=== PATIENT | male | born 1975 | race Two or more races ===

== ENCOUNTER 2019-11-09 15:19 | Inpatient (IN) | payer MEDICAID, OTHER ==
[~2019-11-09] VITALS: Ht 175.3 cm; Wt 97.3 kg
[2019-11-09] MEDS ORDERED: THIAMINE 100mg/ml INJ (200mg/2ml VIAL) IV ONE (16:00)
[2019-11-09 16:26] LABS: Albumin 2.6 g/dL (3.4-5.0); BUN/Creatinine Ratio 13.3; Calcium 7.8 mg/dL (8.5-10.1); Hematocrit 36.8 % (41.0-53.0); Hemoglobin 12.6 g/dL (13.5-17.5); Magnesium 1.7 mg/dL (1.6-2.6); Mean Corpuscular Hemoglobin 31.8 pg (28.0-32.0); Mean Corpuscular Hgb Conc. 34.1 g/dL (32.0-36.0); Mean Corpuscular Volume 93.3 fL (80.0-100.0); Platelet Count (auto) 84 10^3/uL (140-450); Red Blood Cells 3.95 10^6/uL (4.5-5.90); Red Cell Distribution Width 16.4 % (11.8-14.3); White Blood Cell 13.2 10^3/uL (4.4-10.8)
[2019-11-09 16:31] LABS: Total Protein 6.9 g/dL (6.4-8.2)
[2019-11-09 16:36] LABS: Potassium 2.5 mmol/L (3.5-5.1)
[2019-11-09] MEDS ORDERED: POTASSIUM CHL 20MEQ/100ML 100 ML IV ONE (16:45)
[2019-11-09 17:14] LABS: Basophils % (manual) 0 (0.0-2.0); Blast Cells 0; Eosinophils % (manual) 0 (0-7); INR 1.58 (0.9-1.15); Metamyelocytes % 0; Myelocytes % 0; Partial Thromboplastin Time 29.6 sec (23.64-32.05); Promyelocytes % 0; Reactive Lymphocytes 0
[2019-11-09] MEDS ORDERED: FOLIC ACID 1 MG, MULTIPLE VITAMIN 10 ML, MAGNESIUM SULF SDV 50% 8 MEQ, THIAMINE INJ 100... INJ SCH ×5 (17:15)
[2019-11-09 17:16] LABS: Band Neutrophils % (manual) 4; Lymphocytes % (manual) 6 (10.0-50.0); Monocytes % (manual) 4 (0-12)
[2019-11-09] MEDS ORDERED: POTASSIUM CHL 20 Meq TABLET PO ONE (18:00)
[2019-11-09] MEDS ORDERED: traMADol HCL 50 MG TAB PO PRN (18:00)
[2019-11-09] MEDS ORDERED: PROMETHAZINE HCL 25 MG/ML 1ML IV PRN (18:00)
[2019-11-09] MEDS ORDERED: MORPHINE SULF INJ 2 MG/ML SYRINGE 1ML IV PRN (18:00)
[2019-11-09] MEDS ORDERED: LACTULOSE 20Gm/30ML SOLN PO PRN (18:00)
[2019-11-09] MEDS ORDERED: ACETAMINOPHEN 500 MG TAB PO PRN (18:00)
[2019-11-09] MEDS ORDERED: NITROGLYCERIN 0.4 MG SL TAB SL PRN (18:00)
[2019-11-09] MEDS ORDERED: ALBUTEROL SULF 2.5 MG/0.5ML(0.5%) NEB SOLN NEB PRN (18:00)
[2019-11-09] MEDS: POTASSIUM CHL 20MEQ/100ML 100 ML IV SCH ×2 (18:00→22:53)
[2019-11-09] MEDS ORDERED: DEXTROSE (50%) 50ML SYRG IV PRN ×2 (18:00→20:45)
[2019-11-09] MEDS ORDERED: TEMAZEPAM 15 MG CAP PO PRN (18:00)
[2019-11-09] MEDS ORDERED: AZITHROMYCIN 500MG/ 250ML 250 ML IV ONE (18:30)
[2019-11-09] MEDS ORDERED: cefTRIAXone 1GM/50ML D5W 50 ML IV ONE (18:30)
[2019-11-09 18:41] VITALS: BP 147/77
[2019-11-09] MEDS: SOD CHL 0.9%/ KCL 40MEQ 1,000 ML IV SCH (18:43)
[2019-11-09] MEDS ORDERED: PHYTONADIONE(VitK) ORAL Susp 10mg/10ml(1mg/ml) PO ONE (18:45)
[2019-11-09 19:26] LABS: Urine Bacteria NONE SEEN /hpf (None Seen); Urine Blood Negative /uL (Negative); Urine Specific Gravity 1.015 (1.001-1.035); Urine WBC 1 /hpf (0 - 3)
[2019-11-09 19:30] LABS: Alcohol, Urine < 3.0 mg/dL (0-10); Amphetamine Screen, Urine NEGATIVE (NEGATIVE); Barbiturate Scree,Urine NEGATIVE (NEGATIVE); Benzodiazephine Screen, Urine NEGATIVE (NEGATIVE); Cannabinoid Screen, Urine NEGATIVE (NEGATIVE); Cocaine Screen, Urine NEGATIVE (NEGATIVE); Opiate Scree,Urine NEGATIVE (NEGATIVE); Phencyclidine Screen, Urine NEGATIVE (NEGATIVE)
[2019-11-09 19:45] LABS: Lactic Acid w/Reflex 3.3 mmol/L (0.4-2.0)
[2019-11-09 19:50] LABS: Free T4 (Free Thyroxine) 1.2 ng/dL (0.89-1.76)
[2019-11-09 19:51] LABS: Free T3 1.47 pg/mL (2.3-4.2)
--- NOTE | 2019-11-09 19:52 | NUR ---
admit from ED pt arrive via gurney awake, alert and oriented x4. pt on room air no distress noted or expressed. pt oriented to room, restroom, use of call light and this nurse. pt denies any pain. pt updated on plan of care. pt bed locked, low and 2x rails up. call light in reach. pt encouraged to call as needed. this nurse to check in with pt q1hr and prn.
--- NOTE | 2019-11-09 19:53 | NUR ---
instructional media services technician at bedside.
--- NOTE | 2019-11-09 20:00 | NUR ---
previous nurse had hung eliezer, but failed to document administration. this nurse called pharm to confirm that only one of three prescribed 20meq bags had been dispensed.
[2019-11-09 20:43] VITALS: BP 117/65
[2019-11-09 21:53] LABS: INR 1.56 (0.9-1.15)
[2019-11-09] MEDS ORDERED: ACCU-CHEK COMFORT CURVE STRIP VI SCH (22:00)
[2019-11-10] MEDS ORDERED: POTASSIUM CHL 20MEQ/100ML 100 ML IV ONE (03:57)
--- NOTE | 2019-11-10 03:59 | NUR ---
the third of three ordered 20meq K-rider is being administered. the initial 1800 dose had been started by ER nurse, however, had not been documented. hence this nurse "non admin" the 1800 timed dose under the comment "already given". as it stands, the MAR appears to have administered "2 of 3" bags. however, the last prescribed dose is infusing at this time.
[2019-11-10] MEDS: SOD CHL 0.9%/ KCL 40MEQ 1,000 ML IV SCH (04:00)
[2019-11-10] MEDS: InsuLIN REG 1unit/0.01ml Soln (100units/ml) SC SCH ×4 (04:00→18:39)
[2019-11-10] MEDS: POTASSIUM CHL 20MEQ/100ML 100 ML IV SCH (04:03)
[2019-11-10] MEDS: ACCU-CHEK COMFORT CURVE STRIP VI SCH ×4 (04:03→18:32)
[2019-11-10 06:03] VITALS: BP 132/65
--- NOTE | 2019-11-10 08:28 | NUR ---
Respiratory note: HR 88, RR 16, SPO2 92% ON RA.
[2019-11-10] MEDS: cefTRIAXone 1GM/50ML D5W 50 ML IV SCH (08:47)
[2019-11-10 09:00] VITALS: BP 122/65
--- NOTE | 2019-11-10 09:00 | NUR ---
IV INSERTION/ OXYGEN PLACEMENT IV access obtained, via clean sterile technique by inserting 20 gauge catheter at right AC after 1 attempt. IV secured properly. No trauma to site. Patient tolerated well. Additionally, placed patient on 2 liters nasal canula as oxygen saturation is 89% on room air upon no exertion. Patients oxygen up to 96% after initiation of oxygen. Will continue to monitor respiratory status
[2019-11-10] MEDS ORDERED: AZITHROMYCIN 500MG/ 250ML 250 ML IV SCH (10:00)
[2019-11-10] MEDS ORDERED: ENOXAPARIN SOD 40 MG/0.4 ML SYRINGE SC SCH (10:00)
--- NOTE | 2019-11-10 11:40 | NUR ---
Received call from Kajal in microbiology to notify patient is positive for covid 19. Will call and notify Dr. Emmanuel
[2019-11-10] MEDS ORDERED: FOLIC ACID 1 MG, MULTIPLE VITAMIN 10 ML, MAGNESIUM SULF SDV 50% 8 MEQ, THIAMINE INJ 100... INJ SCH ×5 (12:00)
[2019-11-10] MEDS ORDERED: ACETAMINOPHEN 500 MG TAB PO PRN ×2 (12:30→12:45)
[2019-11-10] MEDS ORDERED: DEXTROSE (50%) 50ML SYRG IV PRN (12:30)
[2019-11-10] MEDS ORDERED: FUROSEMIDE 40 MG/4 ML VIAL IV ONE (12:30)
[2019-11-10] MEDS: ALBUTEROL SULF HFA 90MCG INH 200DOSE IN SCH ×2 (14:30→21:56)
--- NOTE | 2019-11-10 14:30 | NUR ---
Respiratory note: HR 99, SPO2 94% ON 2 L NC, RR 18, BS CLEAR AND DIMINISHED. MDI GIVEN BY RT. TOLERATED WELL. RN AT BEDSIDE.
[2019-11-10 16:23] LABS: Hematocrit 38.2 % (41.0-53.0); Mean Corpuscular Hemoglobin 32.1 pg (28.0-32.0); Mean Corpuscular Hgb Conc. 34.1 g/dL (32.0-36.0); Mean Corpuscular Volume 94.3 fL (80.0-100.0); Platelet Count (auto) 96 10^3/uL (140-450); Red Blood Cells 4.05 10^6/uL (4.5-5.90); Red Cell Distribution Width 16.8 % (11.8-14.3); White Blood Cell 11.3 10^3/uL (4.4-10.8)
[2019-11-10 16:28] LABS: Basophils % (manual) 0 (0.0-2.0); Blast Cells 0; Myelocytes % 0; Promyelocytes % 0; Reactive Lymphocytes 0
[2019-11-10 16:44] LABS: Band Neutrophils % (manual) 3; Eosinophils % (manual) 1 (0-7); Lymphocytes % (manual) 9 (10.0-50.0); Metamyelocytes % 1; Monocytes % (manual) 11 (0-12)
[2019-11-10 16:46] LABS: Albumin 2.6 g/dL (3.4-5.0); Calcium 7.8 mg/dL (8.5-10.1)
[2019-11-10 16:50] LABS: Lactic Acid w/Reflex 3.9 mmol/L (0.4-2.0)
[2019-11-10 16:54] VITALS: BP 136/75
[2019-11-10 16:55] LABS: BUN/Creatinine Ratio 14.4; Bilirubin, Total 7.7 mg/dL (0.2-1.0); CRP High Sensitivity 3.69 mg/dL (< 0.3); Total Protein 7.3 g/dL (6.4-8.2)
[2019-11-10 16:57] LABS: Potassium 2.6 mmol/L (3.5-5.1)
--- NOTE | 2019-11-10 17:01 | NUR ---
RECEIVED CRITICAL LAB OF POTASSIUM 2.6. WILL CALL DR. CABALLERO TO NOTIFY AND GET ORDERS.
--- NOTE | 2019-11-10 17:01 | NUR ---
PAGED FOR CRITICAL POTASSIUM. AWAITING RETURN CALL.
--- NOTE | 2019-11-10 17:18 | NUR ---
RECEIVED CALL BACK FROM HOSPITALIST JENNIFER CANDELARIO REGARDING PATIENTS POTASSIUM. RECEIVED ORDERS, WILL DOCUMENT AND CARRY OUT
[2019-11-10] MEDS ORDERED: POTASSIUM EFFERVESENT TAB 25 MEQ PO ONE (17:30)
[2019-11-10] MEDS ORDERED: POTASSIUM CHLORIDE 20 MEQ, LIDOCAINE 1% (LOCAL ANESTH.) 2 ML in SODIUM CHL 0.9% 100 ML IV ONE (17:30)
--- NOTE | 2019-11-10 19:20 | NUR ---
OPENING SHIFT NOTE: ASSUMED CARE OF PATIENT. PATIENT IS AWAKE. ALERT AND ORIENTED X 4. RESPIRATIONS ARE EVEN AND UNLABORED, WITH SOME SOB ON EXERTION, CURRENT O2 SATURATION IS 95% ON 2L NC. PATIENT CONNECTED TO CONTINUOUS TELEMETRY BOX #2, HR IS 101 BPM. ISOLATION PRECAUTIONS IN PLACE USING PROVIDED PPE. BED IS IN LOWEST LOCKED POSITION, TWO SIDE RAILS RAISED AND CALL RIVERA WITHIN REACH. INSTRUCTED ON POC, ENCOURAGED TO CALL FOR ASSISTANCE AND ALL QUESTIONS AND CONCERNS ANSWERED AT THIS TIME, PATIENT VERBALIZED UNDERSTANDING. WILL CONTINUE TO MONITOR Q1 HR AND PRN.
[2019-11-10 20:00] VITALS: BP 125/70
[2019-11-10] MEDS: DOXYCYCLINE 100 MG TAB/CAP PO SCH (22:02)
[2019-11-10 22:17] LABS: BUN/Creatinine Ratio 17.6; Calcium 7.3 mg/dL (8.5-10.1)
[2019-11-11] MEDS: ACCU-CHEK COMFORT CURVE STRIP VI SCH ×4 (00:02→17:56)
[2019-11-11 04:00] VITALS: BP 116/63
[2019-11-11] MEDS: InsuLIN REG 1unit/0.01ml Soln (100units/ml) SC SCH ×4 (05:37→17:56)
[2019-11-11] MEDS: ALBUTEROL SULF HFA 90MCG INH 200DOSE IN SCH ×3 (06:21→21:29)
--- NOTE | 2019-11-11 06:21 | NUR ---
Respiratory note: MDI GIVEN BY RT. HR 82, RR 14, SPO2 95% ON 1 L NC, BS CLEAR AND DIMINISHED. NO SIGNS OR SYMPTOMS OF RESPIRATORY DISTRESS NOTED. RN INFORMED MDI WAS GIVEN.
[2019-11-11] MEDS ORDERED: POTASSIUM CHL 20 Meq TABLET PO ONE (08:00)
[2019-11-11] MEDS: cefTRIAXone 1GM/50ML D5W 50 ML IV SCH (09:43)
[2019-11-11] MEDS: DOXYCYCLINE 100 MG TAB/CAP PO SCH ×2 (10:00→21:34)
[2019-11-11] MEDS: CHOLECALCIFEROL (VITD3) 1,000IU=25mCg TAB PO SCH (10:00)
[2019-11-11] MEDS: ZINC SULFATE 220mg CAP or TAB PO SCH (10:00)
[2019-11-11] MEDS: ENOXAPARIN SOD 40 MG/0.4 ML SYRINGE SC SCH (10:00)
[2019-11-11] MEDS: ASCORBIC ACID 1,000 MG TAB PO SCH (10:00)
[2019-11-11] MEDS: MULTIPLE VITAMINS W/ MINERALS TAB PO SCH (10:00)
[2019-11-11] MEDS: FUROSEMIDE 40 MG/4 ML VIAL IV SCH (10:00)
--- NOTE | 2019-11-11 13:40 | NUR ---
Respiratory note MDI GIVEN BY RT. PT PLACED BACK ON 1 L NC. SPO2 92%. NO SIGNS OR SYMPTOMS OF RESPIRATORY DISTRESS NOTED AT THIS TIME. RN INFORMED MDI WAS GIVEN.
[2019-11-11 16:07] VITALS: BP 119/65
[2019-11-11 19:00] VITALS: BP 107/61
--- NOTE | 2019-11-11 19:10 | NUR ---
OPENING SHIFT NOTE: ASSUMED CARE OF PATIENT. PATIENT IS AWAKE, ALERT AND ORIENTED X 4, NO S/S OF SOB OR DISTRESS AND PT DENIES ANY PAIN. RESPIRATIONS ARE EVEN AND UNLABORED AND O2 SATURATION IS 94% ON 2L NC. ISOLATION PRECAUTIONS IN PLACE WITH PROVIDED PPE AND SAFETY PRECAUTIONS IN PLACE WITH BED LOCKED AND IN LOWEST POSITION, TWO SIDE RAILS UP, AND CALL RIVERA WITHIN REACH. INSTRUCTED ON POC AND ENCOURAGED PT TO CALL FOR ASSISTANCE, ALL QUESTIONS AND CONCERNS ADDRESSED AT THIS TIME, PATIENT VERBALIZES UNDERSTANDING. WILL CONTINUE TO MONITOR Q1 HR AND PRN.
[2019-11-11 20:00] VITALS: BP 123/66
[2019-11-12] VITALS: BP 99/48
[2019-11-12] MEDS: ACCU-CHEK COMFORT CURVE STRIP VI SCH ×2 (00:17→05:48)
[2019-11-12] MEDS: InsuLIN REG 1unit/0.01ml Soln (100units/ml) SC SCH ×2 (05:48)
[2019-11-12] MEDS: ALBUTEROL SULF HFA 90MCG INH 200DOSE IN SCH ×3 (05:48→21:56)
[2019-11-12 05:58] LABS: Hematocrit 31.8 % (41.0-53.0); Hemoglobin 11.1 g/dL (13.5-17.5); Mean Corpuscular Hemoglobin 33.1 pg (28.0-32.0); Mean Corpuscular Volume 94.4 fL (80.0-100.0); Platelet Count (auto) 98 10^3/uL (140-450); Red Blood Cells 3.37 10^6/uL (4.5-5.90); Red Cell Distribution Width 16.6 % (11.8-14.3); White Blood Cell 8.6 10^3/uL (4.4-10.8)
[2019-11-12 06:18] LABS: Basophils % (manual) 0 (0.0-2.0); Blast Cells 0; Eosinophils % (manual) 0 (0-7); Myelocytes % 0; Promyelocytes % 0; Reactive Lymphocytes 0
[2019-11-12 06:21] LABS: Albumin 2.2 g/dL (3.4-5.0); Calcium 7.3 mg/dL (8.5-10.1)
[2019-11-12 06:26] LABS: BUN/Creatinine Ratio 17.8; Bilirubin, Total 6.2 mg/dL (0.2-1.0); Total Protein 6.1 g/dL (6.4-8.2)
[2019-11-12 06:39] LABS: Potassium 2.8 mmol/L (3.5-5.1)
--- NOTE | 2019-11-12 06:40 | NUR ---
CRITICAL LAB: Received call from Andres in lab regarding potassium 2.8, Hospitalist paged. Awaiting call back.
--- NOTE | 2019-11-12 06:44 | NUR ---
HOSPITALIST JINRIKSHA DRIVER LUCIO RODRIGUEZ CALLED BACK, INFORMED OF POTASSIUM 2.8, NEW ORDERS RECEIVED. ORDER NOTED.
[2019-11-12] MEDS ORDERED: POTASSIUM CHL 20 Meq TABLET PO ONE ×2 (06:45→11:30)
[2019-11-12 07:25] LABS: Band Neutrophils % (manual) 5; Lymphocytes % (manual) 18 (10.0-50.0); Metamyelocytes % 2; Monocytes % (manual) 10 (0-12)
--- NOTE | 2019-11-12 07:30 | NUR ---
Opening Shift Note Assumed care of patient, awake and alert and oriented x4. No S/S of distress/SOB or pain, but with some sob on exertion on room air oxygen saturation 93%, will continue to monitor oxygen needs and adjust supplemental O2 as necessary to keep O2 saturations above 92%. Isolation precautions in place using provided PPE. Bed in low and locked position, rails up x2 no-slip socks on and call light within reach. Instructed on POC and to call for assist PRN, all questions answered at this time and patient verbalized understanding, will continue to monitor for changes Q1hr and PRN.
[2019-11-12 08:00] VITALS: BP 120/65
[2019-11-12] MEDS: cefTRIAXone 1GM/50ML D5W 50 ML IV SCH (09:39)
[2019-11-12] MEDS: ASCORBIC ACID 1,000 MG TAB PO SCH (09:40)
[2019-11-12] MEDS: DOXYCYCLINE 100 MG TAB/CAP PO SCH ×2 (09:40→21:46)
[2019-11-12] MEDS: MULTIPLE VITAMINS W/ MINERALS TAB PO SCH (09:40)
[2019-11-12] MEDS: ZINC SULFATE 220mg CAP or TAB PO SCH (09:40)
[2019-11-12] MEDS: CHOLECALCIFEROL (VITD3) 1,000IU=25mCg TAB PO SCH (09:40)
[2019-11-12] MEDS: FUROSEMIDE 40 MG/4 ML VIAL IV SCH (09:41)
[2019-11-12] MEDS: ENOXAPARIN SOD 40 MG/0.4 ML SYRINGE SC SCH (09:41)
--- NOTE | 2019-11-12 11:30 | NUR ---
DR MOROCHO AT BEDSIDE NEW ORDERS TO BE ADDED
[2019-11-12 12:00] VITALS: BP 117/67
[2019-11-12 15:08] VITALS: BP 102/64
[2019-11-12 16:00] VITALS: BP 104/54
--- NOTE | 2019-11-12 19:55 | NUR ---
Opening Shift Note Assumed care of patient, awake and alert oriented x4. No S/S of distress/SOB or pain noted. Instructed on POC and to call for assist PRN. Bed is in lowest locked position with bed rails up x2 and call light is within reach of the patient.
[2019-11-12 20:00] VITALS: BP 113/73
--- NOTE | 2019-11-12 21:56 | NUR ---
Respiratory note: PT'S SCHEDULED MED NEB TREATMENT WAS GIVEN BY CORINNA Saldana AT 2156. HR 97 RR 16 SP02 93% ON 1L NASAL CANNULA.
--- NOTE | 2019-11-12 22:45 | NUR ---
Covid: Covid swab done and taken to Lab. Addendum: 11/12/19 at 2304 by Ladan Cano RN RN Wrong patient
[2019-11-13] VITALS: BP 104/56
[2019-11-13 04:00] VITALS: BP 115/67
[2019-11-13 04:46] LABS: Hematocrit 34.7 % (41.0-53.0); Hemoglobin 11.7 g/dL (13.5-17.5); Mean Corpuscular Hemoglobin 32.3 pg (28.0-32.0); Mean Corpuscular Hgb Conc. 33.8 g/dL (32.0-36.0); Mean Corpuscular Volume 95.6 fL (80.0-100.0); Platelet Count (auto) 113 10^3/uL (140-450); Red Blood Cells 3.63 10^6/uL (4.5-5.90); Red Cell Distribution Width 16.3 % (11.8-14.3); White Blood Cell 11.4 10^3/uL (4.4-10.8)
[2019-11-13 04:52] LABS: Albumin 2.4 g/dL (3.4-5.0); BUN/Creatinine Ratio 16.7; Calcium 7.7 mg/dL (8.5-10.1); Potassium 3.2 mmol/L (3.5-5.1)
[2019-11-13 04:55] LABS: Bilirubin, Total 6.7 mg/dL (0.2-1.0); Total Protein 6.7 g/dL (6.4-8.2)
[2019-11-13 04:56] LABS: Basophils % (manual) 0 (0.0-2.0); Blast Cells 0; Promyelocytes % 0; Reactive Lymphocytes 0
[2019-11-13 06:41] LABS: Band Neutrophils % (manual) 3; Eosinophils % (manual) 1 (0-7); Lymphocytes % (manual) 17 (10.0-50.0); Metamyelocytes % 2; Monocytes % (manual) 6 (0-12); Myelocytes % 1
[2019-11-13] MEDS: ALBUTEROL SULF HFA 90MCG INH 200DOSE IN SCH (06:51)
--- NOTE | 2019-11-13 07:30 | NUR ---
Opening Shift Note Assumed care of patient, awake and alert. No S/S of distress/SOB or pain. On 1 L O2 via nasal cannula. Bed is low, locked with 2x side rails up. Call light is within reach. Instructed on POC and to call for assist PRN, will continue to monitor for changes Q1hr and PRN.
[2019-11-13 09:00] VITALS: BP 106/56
[2019-11-13] MEDS ORDERED: POTASSIUM CHL 20 Meq TABLET PO SCH (10:00)
[2019-11-13] MEDS: cefTRIAXone 1GM/50ML D5W 50 ML IV SCH (10:11)
[2019-11-13] MEDS: FUROSEMIDE 40 MG/4 ML VIAL IV SCH (10:11)
[2019-11-13] MEDS: CHOLECALCIFEROL (VITD3) 1,000IU=25mCg TAB PO SCH (10:12)
[2019-11-13] MEDS: DOXYCYCLINE 100 MG TAB/CAP PO SCH (10:12)
[2019-11-13] MEDS: ZINC SULFATE 220mg CAP or TAB PO SCH (10:12)
[2019-11-13] MEDS: MULTIPLE VITAMINS W/ MINERALS TAB PO SCH (10:12)
[2019-11-13] MEDS: ASCORBIC ACID 1,000 MG TAB PO SCH (10:12)
[2019-11-13] MEDS: ENOXAPARIN SOD 40 MG/0.4 ML SYRINGE SC SCH (10:13)
[2019-11-13] MEDS ORDERED: ASCO10003 PO (11:44)
[2019-11-13] MEDS ORDERED: ALBUAER3 IN (11:44)
[2019-11-13] MEDS ORDERED: MULT-351 PO (11:44)
[2019-11-13] MEDS ORDERED: DOX100T PO (11:44)
[2019-11-13] MEDS ORDERED: POTASSIUM CHL 20 Meq TABLET PO ONE (11:45)
[2019-11-13 12:14] VITALS: BP 106/56
--- NOTE | 2019-11-13 13:46 | NUR ---
Discharge instructions given as ordered. Encourage to follow up with PMD as instructed. All questions and concerns addressed. Patient verbalized understanding. Patient aware of medications that have been sent to pharmacy. IV removed with catheter intact, pressure dressing applied. Telemetry unit returned to ICU. Patient taken to vehicle via wheelchair with all personal belongings, accompanied by staff. No distress noted at time of departure.
== END 2019-11-13 13:50 | disposition home or self-care (01) | DRG 720 ==
LOC: ER 15:19 → TELE 15:20 → TELE-EAST 21:16 → EAST 11-11 13:04
PROVIDERS: ADMIT Internal Medicine; ATTEND Internal Medicine
DX: A41.89 Other specified sepsis (principal); U07.1 COVID-19; J96.01 Acute respiratory failure with hypoxia; E43 Unspecified severe protein-calorie malnutrition; D68.9 Coagulation defect, unspecified; D69.6 Thrombocytopenia, unspecified; E83.42 Hypomagnesemia; K70.9 Alcoholic liver disease, unspecified; R65.20 Severe sepsis without septic shock; K72.90 Hepatic failure, unspecified without coma; J12.89 Other viral pneumonia; J98.11 Atelectasis; E87.6 Hypokalemia; I10 Essential (primary) hypertension
CPT/HCPCS: 36415; 70450; 71045; 76705; 80048; 80053; 80307; 80320; 81001; 82140; 82728; 82962; 83036; 83605; 83615; 83735; 83880; 84100; 84425; 84439; 84443; 84481; 84484; 85007; 85027; 85379; 85610; 85730; 86141; 86710; 87040; 93005; 94640; G0378; J0696; J1815; J2001; J3480

== ENCOUNTER 2020-02-08 12:09 | Emergency (ER) | payer MEDICAID ==
[~2020-02-08] VITALS: Ht 177.8 cm; Wt 99.8 kg
[~2020-02-08 12:09] MED LIST: ALBUAER3 IN; ASCO10003 PO; DOX100T PO; MULT-351 PO
[2020-02-08 12:25] VITALS: BP 127/66
[2020-02-08] MEDS ORDERED: LIDOCAINE 1% HCL (LOCAL ANESTH.) INJ 20ML MDV IJ ONE (13:45)
== END 2020-02-08 14:45 | disposition home or self-care (01) ==
LOC: ER 12:09
DX: L02.31 Cutaneous abscess of buttock (principal); I10 Essential (primary) hypertension
CPT/HCPCS: 10060; 99283; J2001

== ENCOUNTER 2020-02-11 10:39 | Emergency (ER) | payer MEDICAID ==
[~2020-02-11] VITALS: Ht 177.8 cm; Wt 99.8 kg
[2020-02-11 10:50] VITALS: BP 137/74
== END 2020-02-11 11:20 | disposition home or self-care (01) ==
LOC: ER 10:39
DX: Z48.01 Encounter for change or removal of surgical wound dressing (principal); L02.31 Cutaneous abscess of buttock; I10 Essential (primary) hypertension; Z79.899 Other long term (current) drug therapy

== ENCOUNTER 2020-02-13 09:54 | Emergency (ER) | payer MEDICAID ==
[~2020-02-13] VITALS: Ht 177.8 cm; Wt 99.8 kg
[2020-02-13 10:10] VITALS: BP 123/64
== END 2020-02-13 11:02 | disposition home or self-care (01) ==
LOC: ER 09:54
DX: L02.31 Cutaneous abscess of buttock (principal); I10 Essential (primary) hypertension; Z48.01 Encounter for change or removal of surgical wound dressing

== ENCOUNTER 2020-03-03 07:52 | Emergency (ER) | payer MEDICAID ==
[~2020-03-03] VITALS: Ht 177.8 cm; Wt 95.3 kg
[2020-03-03 07:59] VITALS: BP 142/78
== END 2020-03-03 08:20 | disposition left against medical advice (07) ==
LOC: ER 07:52
DX: J06.9 Acute upper respiratory infection, unspecified (principal); F41.9 Anxiety disorder, unspecified; F10.10 Alcohol abuse, uncomplicated; I10 Essential (primary) hypertension

== ENCOUNTER 2024-08-12 03:12 | Inpatient (IN) | payer MEDICAID ==
[~2024-08-12] VITALS: Ht 177.8 cm; Wt 116.6 kg
--- NOTE | 2024-08-12 03:39 | ED.PDOC ---
History of Present Illness HPI Comments 48 y/o M is [id number] for c/o abdominal pain, nausea, and vomiting, today. Per EMS report, patient endorses on sudden onset of symptoms after eating "tacos" 2x hours prior to ED arrival. Patient comments on pain originating in his epigastric area and radiating to his RUQ, describes it as pressure-like in quality, and rates it a 10/10 in severity. He was noted to have been found with a blood glucose of 207 and all other remaining vitals stable and within normal limits. Patient reports history of asthma, liver cirrhosis secondary to alcohol abuse, HTN, PUD, and obesity. He denies having any hematemesis, diarrhea, urinary symptoms, fever, or chills at this time. Chief Complaint: Abdominal Pain Time Seen by MD: 03:20 Primary Care Provider: MANNY Zimmerman Notes: Nurses Notes, [employer] Notes, Medications, Allergies Allergies: Coded Allergies: NO KNOWN ALLERGIES (Unverified , 02/13/20) Home Meds Active Scripts Multiple Vitamins W/ Minerals (Multiple Vitamins/Womens) Womens Tab, 1 TAB PO DAILY for 30 Days, #30 TAB Prov:SYLVIA CABALLERO MD 11/13/19 Albuterol Sulfate (VENTOLIN MDI) 90 Mcg Ih, 90 MCG IN TID, #1 INH Prov:SYLVIA CABALLERO MD 11/13/19 Ascorbic Acid (Gnp Vitamin C W/Nitza Hips) 1,000 Mg Tab, 1000 MG PO DAILY for 15 Days, #15 TAB Prov:SYLVIA CABALLERO MD 11/13/19 Doxycycline Monohydrate (Doxycycline Monohydrate) 100 Mg Tab, 100 MG PO Q12HR for 5 Days, #10 TAB Prov:SYLVIA CABALLERO MD 11/13/19 Information Source: Patient, Emergency Med Personnel Mode of Arrival: EMS Severity: Moderate Timing: Hours Duration: Since onset Prehospital treatment: 12 Lead EKG, Accucheck, Legal Advisor Past Medical History PAST MEDICAL HISTORY: Asthma, HTN, Liver (cirrhosis ), PUD Past Medical History (Other): obesity Surgical History: Denies all surgeries Family History Family History: Reviewed,noncontributory to illness Social History Smoker: Non-Smoker Alcohol: Sober (>4 years) Drugs: Denies Drug Use Lives In: Home All Other Systems: Reviewed and Negative ( negative unless otherwise stated in HPI) Physical Exam General Appearance: Moderate Distress, Obese HEENT: Normal ENT Inspection, Pharynx Normal, TMs Normal Neck: Full Range of Motion, Non-Tender, Normal, Normal Inspection Respiratory: Chest Non-Tender, Lungs Clear, No Accessory Muscle Use, No Respiratory Distress, Normal Breath Sounds Cardiovascular: No Edema, No JVD, No Murmur, No Gallop, Normal Peripheral Pulses, Regular Rate/Rhythm Breast Exam: Deferred Gastrointestinal: Epigastric (tenderness ), No Organomegaly, No Pulsatile Mass, Normal Bowel Sounds, RUQ (tenderness ), Soft Genitalia: Deferred Pelvic: Deferred Rectal: Deferred Extremities: No calf tenderness, Normal capillary refill, Normal inspection, Normal range of motion, Non-tender, No pedal edema Musculoskeletal : Apperance: Normal Neurologic: Alert, engraver set up operator II-XII nml as Tested, No Motor Deficits, Normal Affect, Normal Mood, No Sensory Deficits Cerebellar Function: Normal Reflexes: Normal Skin: Dry, Normal Color, Warm Lymphatic: No Adenopathy Was a procedure done? Was a procedure done?: No Differential Dx Considerations may include: PUD, GERD, gastritis, gastroenteritis, spoiled food, viral syndrome, cholecystitis, cholelithiasis X-Ray, Labs, Meds, VS Vital Signs Date Time Temp Pulse Resp B/P (MAP) Pulse Ox O2 Delivery O2 Flow Rate FiO2 08/12/24 03:54 94 20 136/104 08/12/24 03:12 98.6 88 16 178/117 (137) 96 Lab Test 08/12/24 04:38 08/12/24 03:45 Range/Units Urine Color Dark-red Yellow Urine Clarity Turbid H Clear Urine pH 6.0 5.0-9.0 Urine Specific [place] 1.046 H 1.001-1.035 Urine Protein 2+ H Negative Urine Ketones Negative Negative Urine Blood 2+ H Negative /uL Urine Nitrite Negative Negative Urine Bilirubin Negative Negative Urine Urobilinogen Normal Negative mg/dL Urine Leukocyte Esterase Negative Negative /uL Urine RBC 43 0 - 3 /hpf Urine Microscopic WBC 6 H 0-3 /HPF Urine Squamous Epithelial Cells Few <5 /hpf Urine Bacteria None seen None Seen /hpf Urine Hyaline Casts Few 0 - 2 /lpf Urine Mucus Few None Seen Urine Glucose Normal Normal mg/dL White Blood Count 13.1 H 4.4-10.8 10^3/uL Red Blood Count 5.63 4.5-5.90 10^6/uL Hemoglobin 14.4 13.5-17.5 g/dL Hematocrit 45.8 41.0-53.0 % Mean Corpuscular Volume 81.3 80.0-100.0 fL Mean Corpuscular Hemoglobin 25.6 L 28.0-32.0 pg Mean Corpuscular Hemoglobin Concent 31.5 L 32.0-36.0 g/dL Red Cell Distribution Width 19.7 H 11.8-14.3 % Platelet Count 71 L 140-450 10^3/uL Mean Platelet Volume 9.1 6.9-10.8 fL Neutrophils (%) (Auto) 73.9 37.0-80.0 % Lymphocytes (%) (Auto) 18.0 10.0-50.0 % Monocytes (%) (Auto) 6.8 0.0-12.0 % Eosinophils (%) (Auto) 1.0 0.0-7.0 % Basophils (%) (Auto) 0.3 0.0-2.0 % Neutrophils # (Auto) 9.7 H 1.6-8.6 10 ^3/uL Lymphocytes # (Auto) 2.4 0.4-5.4 10 ^3/uL Monocytes # (Auto) 0.9 0-1.3 10 ^3/uL Eosinophils # (Auto) 0.1 0-0.8 10 ^3/uL Basophils # (Auto) 0 0-0.2 10 ^3/uL Nucleated Red Blood Cells 0.2 % Sodium Level 139 136-145 mmol/L Potassium Level 3.4 L 3.5-5.1 mmol/L Chloride Level 105 98-107 mmol/L Carbon Dioxide Level 20 20-31 mmol/L Anion Gap 14 5-15 Blood Urea Nitrogen 8 L 9-23 mg/dL Creatinine 0.94 0.700-1.30 mg/dL Glomerular Filtration Rate Calc 99 >90 mL/min BUN/Creatinine Ratio 8.5 L 10.0-20.0 Serum Glucose 201 H 74-106 mg/dL Calcium Level 9.3 8.7-10.4 mg/dL Total Bilirubin 3.0 H 0.2-1.0 mg/dL Aspartate Amino Transferase (AST) 87 H 13-40 U/L Alanine Aminotransferase (ALT) 37 7-40 U/L Alkaline Phosphatase 139 H 46-116 U/L Total Protein 6.6 5.7-8.2 g/dL Albumin 4.3 3.2-4.8 g/dL Lipase 72 H 12-53 U/L Current Medications Medications (Trade) Dose Ordered Sig/Wei Route Start Time Stop Time Status Last Admin Ondansetron HCl (Zofran) 4 mg ONCE ONCE IV 08/12/24 03:30 08/12/24 03:32 DC 08/12/24 03:54 Hydromorphone HCl (Dilaudid Injection) 1 mg ONCE ONCE IV 08/12/24 03:30 08/12/24 03:32 DC 08/12/24 03:54 Sodium Chloride 1,000 ml @ 1,000 mls/hr Q1H ONCE IVB 08/12/24 03:30 08/12/24 04:29 DC 08/12/24 03:54 Time of 1ST Reevaluation: 03:50 Reevaluation 1ST: Unchanged Time of 2ND Reevaluation: 05:32 Reevaluation 2ND: Unchanged Patient Education/Counseling: Diagnosis, Treatment Family Education/Counseling: No Family Present Sepsis Sepsis Reasesment Focused Exam Sepsis focused exam: focus exam completed (yes), time: (0500) Departure 1 Departure Time of Disposition: 05:33 Impression: Primary Impression: Pneumonia Additional Impression: Cholecystitis Disposition: ADMITTED INPATIENT Admit to: Med Surg Condition: Guarded Discharged With: Self Comments Right Upper Quadrant Abdominal Pain Chief Complaint: Right upper quadrant abdominal pain History of Present Illness: 48-year-old male presenting with right upper quadrant abdominal pain for the past two days. The pain is associated with tenderness on examination. Patient has underlying liver cirrhosis, and imaging reveals gallbladder wall thickening concerning for early cholecystitis. Review of Systems: Limited review of systems due to focused emergency evaluation. Positive for abdominal pain in right upper quadrant Negative for fever, chills, nausea, vomiting - not mentioned in available information Lab Results: WBC: 13.1 (Elevated) Potassium: 3.4 (Borderline low) Glucose: 201 (Elevated) Lipase: 72 (Borderline elevated) Imaging and Other Relevant Results: CT Abdomen/Chest findings: - Gallbladder wall thickening - Cirrhotic changes in the liver - Left lower lobe pneumonia Medical Decision Making: Summary Statement: 48-year-old male with cirrhosis presenting with RUQ pain, elevated inflammatory markers, and CT findings concerning for early cholecystitis and concurrent left lower lobe pneumonia. Problem List: 1. Early cholecystitis 2. Liver cirrhosis 3. Left lower lobe pneumonia 4. Hyperglycemia 5. Borderline hypokalemia Differential Diagnosis: Acute cholecystitis, biliary colic, ascending cholangitis, hepatic abscess, pneumonia with referred pain, acute hepatitis ED Course: Patient evaluated with labs and CT imaging. Started on IV Zosyn. Decision made to admit for management of possible early cholecystitis, underlying cirrhosis, and pneumonia. Assessment and Plan: 1. Possible Early Cholecystitis: - Admit to hospital for further evaluation and management - Continue IV antibiotics (Zosyn) - Serial abdominal exams - Surgery consultation to be obtained 2. Liver Cirrhosis: - Continue home medications - Monitor liver function tests - Hepatology consultation as needed 3. Left Lower Lobe Pneumonia: - Continue IV antibiotics - Monitor respiratory status 4. Metabolic Derangements: - Monitor and replete potassium as needed - Check hemoglobin A1c - Monitor blood glucose Billing Information: ICD-10: K81.0 - Acute cholecystitis ICD-10: K74.60 - Unspecified cirrhosis of liver ICD-10: J18.9 - Pneumonia, unspecified organism ICD-10: E87.6 - Hypokalemia Critical Care Note Critical Care Time?: Yes (35 min-critical care time only) Critical care comment: Total critical care time: Approximately 36 minutes Due to a high probability of clinically significant, life threatening deterioration, the patient required my highest level of preparedness to intervene emergently and I personally spent this critical care time directly and personally managing the patient. This critical care time included obtaining a history; examining the patient; pulse oximetry; ordering and review of studies; arranging urgent treatment with development of a management plan; evaluation of patient's response to treatment; frequent reassessment; and, discussions with other providers. This critical care time was performed to assess and manage the high probability of imminent, life-threatening deterioration that could result in multi-organ failure. It was exclusive of separately billable procedures and treating other patients. Stability Stability form required: No Heart Score Heart Score: Heart Score Response (Comments) Value History N/A 0 EKG N/A 0 Age N/A 0 Risk Factors N/A 0 Troponin N/A 0 Total 0 I personally scribed for FAVIO CLAY MD ([email or web address]) on 08/12/24 at 03:39. Electronically submitted by Titi Neal [email or web address]). FAVIO CLAY MD Aug 12, 2024 03:39
[2024-08-12] MEDS: HYDROmorphone HCL 2 MG/ML VL/or syr IV ONE (03:54)
[2024-08-12] MEDS: SODIUM CHLORIDE 0.9% 1,000 ML IVB ONE (03:54)
[2024-08-12] MEDS: ONDANSETRON HCL 4 MG/2 ML VIAL IV ONE (03:54)
[2024-08-12 04:28] LABS: Basophils # (auto) 0 10 ^3/uL (0-0.2); Basophils % (auto) 0.3 % (0.0-2.0); Eosinophils # (auto) 0.1 10 ^3/uL (0-0.8); Hematocrit 45.8 % (41.0-53.0); Hemoglobin 14.4 g/dL (13.5-17.5); Lymphocytes # (auto) 2.4 10 ^3/uL (0.4-5.4); Mean Corpuscular Hemoglobin 25.6 pg (28.0-32.0); Mean Corpuscular Hgb Conc. 31.5 g/dL (32.0-36.0); Mean Corpuscular Volume 81.3 fL (80.0-100.0); Monocytes # (auto) 0.9 10 ^3/uL (0-1.3); Monocytes % (auto) 6.8 % (0.0-12.0); Neutrophils # (auto) 9.7 10 ^3/uL (1.6-8.6); Neutrophils % (auto) 73.9 % (37.0-80.0); Nucleated Red Blood Cells % 0.2 %; Platelet Count (auto) 71 10^3/uL (140-450); Red Blood Cells 5.63 10^6/uL (4.5-5.90); Red Cell Distribution Width 19.7 % (11.8-14.3); White Blood Cell 13.1 10^3/uL (4.4-10.8)
[2024-08-12 04:35] LABS: Albumin 4.3 g/dL (3.2-4.8); Anion Gap 14 (5-15); Calcium 9.3 mg/dL (8.7-10.4); Chloride 105 mmol/L (98-107); Sodium 139 mmol/L (136-145)
[2024-08-12 04:36] LABS: Total Protein 6.6 g/dL (5.7-8.2)
[2024-08-12 04:41] LABS: Urine Bacteria None Seen /hpf (None Seen)
[2024-08-12] MEDS: IOHEXOL 300 MG/ML 100ML BOTTLE IJ ONE (04:44)
[2024-08-12 04:51] LABS: Alanine Aminotransferase 37 U/L (7-40); Alkaline Phosphatase 139 U/L (46-116); Aspartate Aminotransferase 87 U/L (13-40); BUN/Creatinine Ratio 8.5 (10.0-20.0); Blood Urea Nitrogen 8 mg/dL (9-23); Carbon Dioxide 20 mmol/L (20-31); Glucose 201 mg/dL (74-106); Lipase 72 U/L (12-53); Potassium 3.4 mmol/L (3.5-5.1)
--- NOTE | 2024-08-12 04:57 | DVH ---
EXAM: CT CT AB PEL WITH IV CON ONLY HISTORY: upper abd pain COMPARISON: None TECHNIQUE: Helical CT images of the abdomen and pelvis were performed with 100 mL Omnipaque 300 IV contrast. Sa gittal and coronal reformatted images were obtained. This CT exam was performed using 1 or more of t he following dose reduction techniques: Automated exposure control, adjustment of the mA and/or kv ac cording to patient size, or the use of iterative reconstruction techniques. Radiation Dose Information: CT Dose: CTDI volume is 25.54 mGy. Dose-length product is 1716.41 mGy*cm FINDINGS: CT abdomen: There are patchy nodular infiltrates in the left lower lobe. There is mild scarring or at electasis in the lingula. The heart is not enlarged. The liver is shrunken, with irregular nodular m argins. Gallbladder is distended up to 6.6 cm width x 11.7 cm length, with gallstones present and pos sible wall thickening. There is low volume free fluid in the right upper quadrant. The spleen measur es 14 cm longitudinal. The pancreas, kidneys, and adrenal glands are unremarkable. No abdominal aort ic aneurysm or dissection. CT pelvis: No abnormal bowel dilatation. There is low volume free fluid in the pelvis. The appendix is not visualized. There is a small fatty left inguinal indirect hernia. The prostate is upper limit s of normal in size. The urinary bladder is decompressed. There is [id number] lumbar degenerati ve disc disease. IMPRESSION: 1. Mild left lower lobe pneumonia. 2. Shrunken nodular liver consistent with advanced hepatic cirrhosis. There is associated splenomegal y and low volume abdominopelvic ascites. 3. Cholelithiasis with gallbladder hydrops and possible gallbladder wall thickening which may indicat e acute cholecystitis. 4. No evidence of bowel obstruction or other acute process in the abdomen or pelvis.
[2024-08-12 05:18] LABS: Urine Blood 2+ /uL (Negative); Urine Clarity Turbid (Clear); Urine Color Dark-Red (Yellow); Urine Hyaline Cast FEW /lpf (0 - 2); Urine Mucus FEW (None Seen); Urine Protein, UAD 2+ (Negative); Urine Specific Gravity 1.046 (1.001-1.035); Urine Squamous Epithelial Cell FEW /hpf (<5); Urine Urobilinogen Normal (Negative); Urine WBC 6 /HPF (0-3)
[2024-08-12] MEDS: PIPERACILLIN-TAZO 4.5GM 100 ML IV ONE (05:39)
[2024-08-12 07:54] LABS: Lactic Acid w/Reflex 4.1 mmol/L (0.4-2.0)
--- NOTE | 2024-08-12 08:12 | DVH ---
EXAM: US GALLBLADDER HISTORY: RUQ pain COMPARISON: LIVER on DOS: 11/09/19, CT scan of the abdomen and pelvis dated 08/12/2024. TECHNIQUE: Right upper quadrant ultrasound was performed. FINDINGS: Multiple gallstones sludge are identified in the gallbladder lumen with gallbladder wall thickening m easuring 4-6 mm. The gallbladder is distended up to 5.9 cm width. The patient was not tender to trans ducer pressure over the gallbladder. No intrahepatic biliary ductal dilatation or liver mass. Hepati c margins are quite nodular. Color Doppler blood flow can not be established in the main portal vein. The common duct was not well visualized sonographically. The partially visualized pancreas is unrem arkable. The intrahepatic portion of the IVC is patent. No upper abdominal aortic ectasia. The rig ht kidney measures 7.9 cm in length and is normal in appearance. There is low to moderate volume uppe r abdominal ascites. IMPRESSION: 1. Nodular hepatic margins and upper abdominal ascites consistent with hepatic cirrhosis. 2. Cholelithiasis with gallbladder wall thickening and gallbladder hydrops suggestive of acute cholec ystitis. 3. The main portal vein is visualized here, but color Doppler blood flow could not be established wit hin the main portal vein, which may be due to slow flow or thrombosis. It should be noted that the m ain portal vein appears patent with normal contrast enhancement on the recent CT scan.
[2024-08-12 08:48] VITALS: PULSE 126; RESP 18; O2SAT 98
[2024-08-12] MEDS: SODIUM CHLORIDE 0.9% 1,000 ML IV SCH (09:15)
[2024-08-12] MEDS ORDERED: METO-289 PO (09:48)
[2024-08-12] MEDS: ONDANSETRON HCL 4 MG/2 ML VIAL IV PRN (09:52)
[2024-08-12] MEDS: POTASSIUM CHL 20 Meq TABLET PO ONE (09:53)
[2024-08-12] MEDS: MORPHINE SULFATE INJ 2 MG/ml SYRG IV PRN (09:54)
[2024-08-12] MEDS ORDERED: IPRATROPIUM BROM 0.5 MG/2.5ML INH SOL NEB PRN (10:00)
[2024-08-12] MEDS ORDERED: hydrALAZINE HCL 20 MG/ML VL IV PRN (10:00)
[2024-08-12] MEDS ORDERED: ALBUTEROL SULF 2.5 MG/0.5ML(0.5%) NEB SOLN NEB PRN (10:00)
--- NOTE | 2024-08-12 10:01 | DVHHP2 ---
History of Present Illness Reason for Visit: Abdominal pain History of Present Illness This 48-year-old male presents in the ED via EMS with a chief complaint of abdominal pain. The patient reports abdominal pain associated with nausea and vomiting started two days ago. The patient states symptoms has progressed for which prompted him to call 911. The patient denies dizziness, syncope, hematemesis, chest pain, shortness of breath, constipation, diarrhea, or melena. Past medical history of alcohol cirrhosis, hypertension, asthma, peptic ulcer disease, and obesity. Past Medical History As stated in HPI Past Surgical History Denies Family History Reviewed, non-contributory to the management of this case. Past Social History The patient lives at home, denies smoking or illicit drugs abuse. ex- ETOH abuse Review of Systems Constitutional: Yes: Malaise; No: Fever, Chills, Sweats, Weakness, Other Eyes: No: Pain, Vision change, Conjunctivae inflammation, Eyelid inflammation, Other, Redness ENT: No: Ear pain, Ear discharge, Nose pain, Nose discharge, Nose congestion, Mouth pain, Mouth swelling, Throat pain, Throat swelling, Other Respiratory: No: Cough, Dry, Shortness of breath, SOB with excertion, Wheezing, Hemoptysis, Pleuritic Pain, Sputum, Wheezing, Other Cardiovascular: No: Chest Pain, Palpitations, Orthopnea, Paroxysmal Noc. Dyspnea, Edema, Lt Headedness, Other Gastrointestinal: Nausea, Vomiting, Abdominal Pain; No: Diarrhea, Constipation, Melena, Hematochezia, Other Genitourinary: No Dysuria, No Frequency, No Incontinence, No Hematuria, No Retention, No Other Musculoskeletal: No: other, neck pain, shoulder pain, arm pain, back pain, hand pain, leg pain, foot pain Skin: No: Rash, Lesions, Jaundice, Bruising, Other Neurological: No: Weakness, Numbness, Incoordination, Change in speech, Confusion, Seizures, Other Allergies: Coded Allergies: NO KNOWN ALLERGIES (Unverified , 02/13/20) Exam Vital Signs Vital Signs Date Time Temp Pulse Resp B/P (MAP) Pulse Ox O2 Delivery O2 Flow Rate FiO2 08/12/24 08:48 126 18 98 Room Air* 0 21 08/12/24 08:48 98.4 116/48 (70) 98.4 General Appearance: Alert, Oriented X3, mild distress HEENT: Atraumatic, PERRLA, EOMI, Mucous membr. moist/pink Respiratory: Clear to auscultation, Normal air movement Cardiovascular: Regular rate, Normal S1 Abdominal: Normal bowel sounds, Soft, Other (Right upper quadrant tenderness) Extremities: No clubbing, No cyanosis, No edema, Normal pulses, No tenderness/swelling Skin: No rashes, No breakdown, No significant lesion Neuro: Normal speech, Normal tone Psych/Mental Status: Mental status NL Labs/Xrays Labs Test 08/12/24 08:06 08/12/24 04:38 08/12/24 03:45 Range/Units Lactic Acid Level 7.4 *H 0.4-2.0 mmol/L Urine Color Dark-red Yellow Urine Clarity Turbid H Clear Urine pH 6.0 5.0-9.0 Urine Specific [place] 1.046 H 1.001-1.035 Urine Protein 2+ H Negative Urine Ketones Negative Negative Urine Blood 2+ H Negative /uL Urine Nitrite Negative Negative Urine Bilirubin Negative Negative Urine Urobilinogen Normal Negative mg/dL Urine Leukocyte Esterase Negative Negative /uL Urine RBC 43 0 - 3 /hpf Urine Microscopic WBC 6 H 0-3 /HPF Urine Squamous Epithelial Cells Few <5 /hpf Urine Bacteria None seen None Seen /hpf Urine Hyaline Casts Few 0 - 2 /lpf Urine Mucus Few None Seen Urine Glucose Normal Normal mg/dL White Blood Count 13.1 H 4.4-10.8 10^3/uL Red Blood Count 5.63 4.5-5.90 10^6/uL Hemoglobin 14.4 13.5-17.5 g/dL Hematocrit 45.8 41.0-53.0 % Mean Corpuscular Volume 81.3 80.0-100.0 fL Mean Corpuscular Hemoglobin 25.6 L 28.0-32.0 pg Mean Corpuscular Hemoglobin Concent 31.5 L 32.0-36.0 g/dL Red Cell Distribution Width 19.7 H 11.8-14.3 % Platelet Count 71 L 140-450 10^3/uL Mean Platelet Volume 9.1 6.9-10.8 fL Neutrophils (%) (Auto) 73.9 37.0-80.0 % Lymphocytes (%) (Auto) 18.0 10.0-50.0 % Monocytes (%) (Auto) 6.8 0.0-12.0 % Eosinophils (%) (Auto) 1.0 0.0-7.0 % Basophils (%) (Auto) 0.3 0.0-2.0 % Neutrophils # (Auto) 9.7 H 1.6-8.6 10 ^3/uL Lymphocytes # (Auto) 2.4 0.4-5.4 10 ^3/uL Monocytes # (Auto) 0.9 0-1.3 10 ^3/uL Eosinophils # (Auto) 0.1 0-0.8 10 ^3/uL Basophils # (Auto) 0 0-0.2 10 ^3/uL Nucleated Red Blood Cells 0.2 % Sodium Level 139 136-145 mmol/L Potassium Level 3.4 L 3.5-5.1 mmol/L Chloride Level 105 98-107 mmol/L Carbon Dioxide Level 20 20-31 mmol/L Anion Gap 14 5-15 Blood Urea Nitrogen 8 L 9-23 mg/dL Creatinine 0.94 0.700-1.30 mg/dL Glomerular Filtration Rate Calc 99 >90 mL/min BUN/Creatinine Ratio 8.5 L 10.0-20.0 Serum Glucose 201 H 74-106 mg/dL Calcium Level 9.3 8.7-10.4 mg/dL Total Bilirubin 3.0 H 0.2-1.0 mg/dL Aspartate Amino Transferase (AST) 87 H 13-40 U/L Alanine Aminotransferase (ALT) 37 7-40 U/L Alkaline Phosphatase 139 H 46-116 U/L Total Protein 6.6 5.7-8.2 g/dL Albumin 4.3 3.2-4.8 g/dL Lipase 72 H 12-53 U/L PROCEDURE(s): GBUS - GALLBLADDER REASON: RUQ pain ORDER NUMBER(s): [id number], ACCESSION NUMBER(s): [id number] EXAM: US GALLBLADDER HISTORY: RUQ pain COMPARISON: LIVER on DOS: 11/09/19, CT scan of the abdomen and pelvis dated 08/12/2024. TECHNIQUE: Right upper quadrant ultrasound was performed. FINDINGS: Multiple gallstones sludge are identified in the gallbladder lumen with gallbladder wall thickening measuring 4-6 mm. The gallbladder is distended up to 5.9 cm width. The patient was not tender to transducer pressure over the g allbladder. No intrahepatic biliary ductal dilatation or liver mass. Hepatic margins are quite nodular. Color Doppler blood flow can not be established in the main portal vein. The common duct was not well visualized sonographically. The partially visualized pancreas is unremarkable. The intrahepatic portion of the IVC is patent. No upper abdominal aortic ectasia. The right kidney measures 7.9 cm in length and is normal in appearance. There is low to moderate volume upper abdominal ascites. IMPRESSION: 1. Nodular hepatic margins and upper abdominal ascites consistent with hepatic cirrhosis. 2. Cholelithiasis with gallbladder wall thickening and gallbladder hydrops suggestive of acute cholecystitis. 3. The main portal vein is visualized here, but color Doppler blood flow could not be established within the main portal vein, which may be due to slow flow or thrombosis. It should be noted that the main portal vein appears patent with normal contrast enhancement on the recent CT scan. Assessment/Plan Assessment/Plan # acute cholecystitis # acute abdominal pain # nausea and vomiting Admit to med/surg unit Zosyn Surgical consult NPO accept meds until seen by surgical team IV fluid Antiemetics # sepsis likely due to pneumonia, acute cholecystitis IV fluid resuscitation Empiric antibiotic Blood, sputum culture # hypertension Metoprolol Hydralazine as needed Monitor # asthma Med neb O2 supplement prn # hyperglycemia Check A1c # hx of alcohol liver cirrhosis Monitor Avoid hepatotoxins # hx PUD PPI # morbid obesity Lifestyle modification counseled with diet, regular exercise, and weight loss Check lipid panel and TSH PUD/DVT prophylaxis Medical plan discussed with patient and RN Plan discussed with: Patient My Orders Orders - JORDANA ROBERTS Procedure Category Date Status Time Admit ADMIT 08/12/24 Transmitted 09:01 Code Status CODE 08/12/24 Transmitted 09:01 Sodium Chloride 0.9% PHA 08/12/24 Logged 09:15 Hydrocodone-Acet PHA 08/12/24 Transmitted 5/325mg Tab ([place] 09:15 Ondansetron Hcl PHA 08/12/24 Transmitted (Zofran) 09:15 Complete Blood Count LAB 08/13/24 Verified 04:00 Comprehensive LAB 08/13/24 Verified Metabolic Panel 04:00 Condition: Serious YANA 08/12/24 Transmitted 09:01 Acetaminophen Tablet PHA 08/12/24 Transmitted (Tylenol Tablet) 09:15 Morphine Sulfate PHA 08/12/24 Transmitted Injection 09:15 * Surgical Consult CONS 08/12/24 Transmitted Npo Except For YANA 08/12/24 Transmitted Medications 09:01 Zosyn Extended PHA 08/12/24 Transmitted Infusion 12:00 Chest Portable XY 08/13/24 Logged 04:00 Potassium Er Tablet PHA 08/12/24 Transmitted (Klor-Con Tablet) 09:15 PTPTT LAB 08/12/24 Transmitted 09:01 Hemoglobin A1c LAB 08/12/24 Transmitted 09:01 Date of Service: Aug 12, 2024 Billing Provider: JORDANA ROBERTS Common Visit Codes: 69990-[id number] INP/OBS CARE (HIGH) JORDANA ROBERTSP Aug 12, 2024 10:01
[2024-08-12] MEDS: PANTOPRAZOLE 40 MG/10 ML VIAL INJ IV SCH (10:05)
[2024-08-12 10:10] VITALS: BP 118/67; PULSE 130; RESP 18; O2SAT 98
[2024-08-12 10:54] LABS: INR 1.31 (0.9-1.15); Partial Thromboplastin Time 26.2 SEC (24.5-34.5); Prothrombin Time 13.5 sec (9.3-11.8)
[2024-08-12 11:01] LABS: Triglycerides 117 mg/dL (< 150)
[2024-08-12 11:02] LABS: LDL Cholesterol 70 mg/dL (< 100)
[2024-08-12 11:03] LABS: Cholesterol 159 mg/dL (< 200); HDL Cholesterol 70 mg/dL (40-59)
[2024-08-12] MEDS: ALBUTEROL SULF 2.5 MG/0.5ML(0.5%) NEB SOLN NEB SCH (11:15)
[2024-08-12] MEDS: IPRATROPIUM BROM 0.5 MG/2.5ML INH SOL NEB SCH (11:15)
--- NOTE | 2024-08-12 12:32 | DVHINCON2 ---
Date of service: Aug 12, 2024 History of Present Illness 48-year-old male with a history of alcohol abuse with cirrhosis admitted secondary to two day history of epigastric and right upper quadrant abdominal pain associated with nausea and vomiting. Patient denies any fevers or chills. Past Medical History Alcoholic cirrhosis. Hypertension. Past Surgical History Denies any abdominal surgery. Family History: Non-contributory Family History Noncontributory Social History Quit alcohol four years ago. Denies any tobacco or IV drug use. Allergies: Coded Allergies: NO KNOWN ALLERGIES (Unverified , 02/13/20) Home Meds Active Scripts Multiple Vitamins W/ Minerals (Multiple Vitamins/Womens) Womens Tab, 1 TAB PO DAILY for 30 Days, #30 TAB Prov:SYLVIA CABALLERO MD 11/13/19 Albuterol Sulfate (VENTOLIN MDI) 90 Mcg Ih, 90 MCG IN TID, #1 INH Prov:SYLVIA CABALLERO MD 11/13/19 Ascorbic Acid (Gnp Vitamin C W/Nitza Hips) 1,000 Mg Tab, 1000 MG PO DAILY for 15 Days, #15 TAB Prov:SYLVIA CABALLERO MD 11/13/19 Doxycycline Monohydrate (Doxycycline Monohydrate) 100 Mg Tab, 100 MG PO Q12HR for 5 Days, #10 TAB Prov:SYLVIA CABALLERO MD 11/13/19 Reported Medications Metoprolol Succinate (Metoprolol Succinate Er) 50 Mg Tab, 1 TAB PO DAILY 08/12/24 Current Medications Current Medications Medications (Trade) Dose Ordered Sig/Wei Route PRN Reason Start Time Stop Time Status Last Admin Sodium Chloride 1,000 ml @ 120 mls/hr Q8H20M IV 08/12/24 09:15 08/12/24 09:15 Acetaminophen/ Hydrocodone Bitart ([place] 5/325MG Tab) 1 tab Q4HP PRN PO MODERATE PAIN (4-6 PAIN SCALE) 08/12/24 09:15 Ondansetron HCl (Zofran) 4 mg Q4HP PRN IV NAUSEA / VOMITING 08/12/24 09:15 08/12/24 09:52 Acetaminophen (Tylenol Tablet) 650 mg Q6HP PRN PO PAIN SCALE 1-3 OR TEMP>100.4 08/12/24 09:15 Morphine Sulfate 2 mg Q4HPRN PRN IV SEVERE PAIN (7-10 PAIN SCALE) 08/12/24 09:15 08/12/24 09:54 Piperacillin Sod/ Tazobactam Sod 100 ml @ 25 mls/hr Q6HR IV 08/12/24 12:00 Albuterol (Ventolin Medneb) 2.5 mg Q4HPRN PRN NEB SHORTNESS OF BREATH 08/12/24 10:00 Albuterol (Ventolin Medneb) 2.5 mg Q6HR NEB 08/12/24 12:00 Ipratropium [place] (Atrovent Medneb) 0.5 mg Q4HPRN PRN NEB SHORTNESS OF BREATH 08/12/24 10:00 Ipratropium [place] (Atrovent Medneb) 0.5 mg Q6HR NEB 08/12/24 12:00 Hydralazine HCl (Apresoline Injection) 10 mg Q6HP PRN IV SBP>150 08/12/24 10:00 Pantoprazole Sodium (Protonix) 40 mg DAILY IV 08/12/24 10:00 08/12/24 10:05 Vital Signs Vital Signs Date Time Temp Pulse Resp B/P (MAP) Pulse Ox O2 Delivery O2 Flow Rate FiO2 08/12/24 10:10 130 18 118/67 98 0.0 21 08/12/24 08:48 Room Air* 08/12/24 08:48 98.4 98.4 Physical Exam GEN: Slightly obese male in no acute distress. Alert. HEENT: Normocephalic atraumatic. Moist mucous membranes. Slight scleral icterus. CV: Tachycardic but regular rhythm Respiratory: Coarse breath sounds ABD: Obese abdomen with minimal right upper quadrant tenderness to palpation without guarding or rebound. Abdominal ultrasound: Nausea hepatic margins and abdominal ascites consistent with cirrhosis. Cholelithiasis with gallbladder wall thickening suggestive of acute cholecystitis. Common bile duct not well visualized. CT of the abdomen and pelvis: Left lower lobe pneumonia. Nodular liver consist ent with advanced hepatic cirrhosis with splenomegaly and ascites. Cholelithiasis with gallbladder hydrops possible gallbladder wall thickening which may indicate acute cholecystitis. Labs/Diagnostic Data Labs Test 08/12/24 10:02 08/12/24 08:06 08/12/24 04:38 08/12/24 03:45 Range/Units Prothrombin Time 13.5 H 9.3-11.8 sec Prothrombin Time INR 1.31 H 0.9-1.15 Activated Partial Thromboplast Time 26.2 24.5-34.5 SEC Triglycerides Level 117 < 150 mg/dL Cholesterol Level 159 < 200 mg/dL LDL Cholesterol 70 < 100 mg/dL HDL Cholesterol 70 H 40-59 mg/dL Thyroid Stimulating Hormone (TSH) 2.13 0.55-4.78 uIU/mL Lactic Acid Level 7.4 *H 0.4-2.0 mmol/L Urine Color Dark-red Yellow Urine Clarity Turbid H Clear Urine pH 6.0 5.0-9.0 Urine Specific [place] 1.046 H 1.001-1.035 Urine Protein 2+ H Negative Urine Ketones Negative Negative Urine Blood 2+ H Negative /uL Urine Nitrite Negative Negative Urine Bilirubin Negative Negative Urine Urobilinogen Normal Negative mg/dL Urine Leukocyte Esterase Negative Negative /uL Urine RBC 43 0 - 3 /hpf Urine Microscopic WBC 6 H 0-3 /HPF Urine Squamous Epithelial Cells Few <5 /hpf Urine Bacteria None seen None Seen /hpf Urine Hyaline Casts Few 0 - 2 /lpf Urine Mucus Few None Seen Urine Glucose Normal Normal mg/dL White Blood Count 13.1 H 4.4-10.8 10^3/uL Red Blood Count 5.63 4.5-5.90 10^6/uL Hemoglobin 14.4 13.5-17.5 g/dL Hematocrit 45.8 41.0-53.0 % Mean Corpuscular Volume 81.3 80.0-100.0 fL Mean Corpuscular Hemoglobin 25.6 L 28.0-32.0 pg Mean Corpuscular Hemoglobin Concent 31.5 L 32.0-36.0 g/dL Red Cell Distribution Width 19.7 H 11.8-14.3 % Platelet Count 71 L 140-450 10^3/uL Mean Platelet Volume 9.1 6.9-10.8 fL Neutrophils (%) (Auto) 73.9 37.0-80.0 % Lymphocytes (%) (Auto) 18.0 10.0-50.0 % Monocytes (%) (Auto) 6.8 0.0-12.0 % Eosinophils (%) (Auto) 1.0 0.0-7.0 % Basophils (%) (Auto) 0.3 0.0-2.0 % Neutrophils # (Auto) 9.7 H 1.6-8.6 10 ^3/uL Lymphocytes # (Auto) 2.4 0.4-5.4 10 ^3/uL Monocytes # (Auto) 0.9 0-1.3 10 ^3/uL Eosinophils # (Auto) 0.1 0-0.8 10 ^3/uL Basophils # (Auto) 0 0-0.2 10 ^3/uL Nucleated Red Blood Cells 0.2 % Sodium Level 139 136-145 mmol/L Potassium Level 3.4 L 3.5-5.1 mmol/L Chloride Level 105 98-107 mmol/L Carbon Dioxide Level 20 20-31 mmol/L Anion Gap 14 5-15 Blood Urea Nitrogen 8 L 9-23 mg/dL Creatinine 0.94 0.700-1.30 mg/dL Glomerular Filtration Rate Calc 99 >90 mL/min BUN/Creatinine Ratio 8.5 L 10.0-20.0 Serum Glucose 201 H 74-106 mg/dL Hemoglobin A1c 4.8 <5.7 % A1C Calcium Level 9.3 8.7-10.4 mg/dL Total Bilirubin 3.0 H 0.2-1.0 mg/dL Aspartate Amino Transferase (AST) 87 H 13-40 U/L Alanine Aminotransferase (ALT) 37 7-40 U/L Alkaline Phosphatase 139 H 46-116 U/L Total Protein 6.6 5.7-8.2 g/dL Albumin 4.3 3.2-4.8 g/dL Lipase 72 H 12-53 U/L Assessment A: 1. Alcoholic cirrhosis 2. Cholecystitis 3. Left lower lobe pneumonia Plan/Recommendation P: 1. Patient is a high surgical risk due to his extensive cirrhosis. I recommend transferred to higher level of care with possible cholecystectomy by hepatobiliary surgeon. If this is not possible then at the minimum recommend a IR percutaneous cholecystostomy tomorrow. I have discussed this with the patient and the ER doctor, Dr. Calzada. Plan discussed with: Patient JHONATAN MEIER MD Aug 12, 2024 12:32
[2024-08-12] MEDS: PIPERACILLIN-TAZOB 3.375GM 100 ML IV SCH (13:12)
[2024-08-12 18:58] VITALS: PULSE 131; RESP 20; O2SAT 95
[2024-08-12 19:06] VITALS: PULSE 135; RESP 20; O2SAT 98
[2024-08-12 19:30] VITALS: PULSE 140; O2SAT 98
[2024-08-12 22:00] VITALS: PULSE 139; RESP 40; O2SAT 98
[2024-08-12 22:47] LABS: Lactic Acid w/Reflex 3.6 mmol/L (0.4-2.0)
[2024-08-12] MEDS: HYDROMORPHONE HCL 1 MG/ML INJ IV ONE (23:03)
[2024-08-12] MEDS: SODIUM CHLORIDE 0.9% 500 ML IV ONE (23:04)
[2024-08-13] VITALS (20 sets, daily range): BP systolic 104–135; BP diastolic 59–73; PULSE 113–141; RESP 15–24; TEMP 97.9–100.7; O2SAT 89–99
[2024-08-13] MEDS: LABETALOL HCL 20 MG/4 ML VL IV ONE (01:16)
--- NOTE | 2024-08-13 05:56 | DVH ---
EXAM: XR Chest, 1 View CLINICAL INDICATION: pna TECHNIQUE: Frontal view of the chest. COMPARISON: CHEST XRAY 1 VIEW on DOS: 11/11/19, CHEST PORTABLE on DOS: 11/10/19, CHEST PORTABLE on DO S: 11/09/19 FINDINGS: LUNGS AND PLEURAL SPACES: Left basilar atelectasis or pneumonia. No pneumothorax. HEART: Unremarkable. No cardiomegaly. MEDIASTINUM: Unremarkable. Normal mediastinal contour. BONES/JOINTS: Unremarkable. No acute fracture. OTHER FINDINGS: . IMPRESSION: Left basilar atelectasis or pneumonia.
--- NOTE | 2024-08-13 06:26 | ECG ---
[facility] Test Date: 2024-08-12 Test Time: 21:02:10 Pat Name: MATHIEU SORIANO Department: ER Room: 0284 Gender: M Administrative Office Clerk: INDIO : 1975 Requested By: JORDANA ROBERTS Order Number: [id number] Reading MD: Ammon Sheets Measurements Intervals [place] Rate: 145 P: 31 DE: 130 QRS: 37 QRSD: 90 T: 17 QT: 288 QTc: 448 Interpretive Statements Sinus tachycardia Ventricular premature complex Aberrant complex Low voltage, extremity leads Electronically Signed On 08-18-2024 17:00:18 PST by Ammon Sheets Please click the below link to view image of tracing.
[2024-08-13 07:05] LABS: Basophils # (auto) 0 10 ^3/uL (0-0.2); Eosinophils # (auto) 0 10 ^3/uL (0-0.8); Hemoglobin 9.2 g/dL (13.5-17.5); Lymphocytes # (auto) 1.4 10 ^3/uL (0.4-5.4)
[2024-08-13 07:06] LABS: Basophils % (auto) 0.3 % (0.0-2.0); Eosinophils % (auto) 0.1 % (0.0-7.0); Hematocrit 28.7 % (41.0-53.0); Lymphocytes % (auto) 9.2 % (10.0-50.0); Mean Corpuscular Hemoglobin 26.2 pg (28.0-32.0); Mean Corpuscular Hgb Conc. 32.1 g/dL (32.0-36.0); Mean Corpuscular Volume 81.7 fL (80.0-100.0); Monocytes # (auto) 1.1 10 ^3/uL (0-1.3); Monocytes % (auto) 7.3 % (0.0-12.0); Neutrophils # (auto) 12.7 10 ^3/uL (1.6-8.6); Neutrophils % (auto) 83.1 % (37.0-80.0); Platelet Count (auto) 46 10^3/uL (140-450); Red Blood Cells 3.51 10^6/uL (4.5-5.90); Red Cell Distribution Width 19.7 % (11.8-14.3); White Blood Cell 15.3 10^3/uL (4.4-10.8)
[2024-08-13 07:33] LABS: Anion Gap 9 (5-15); BUN/Creatinine Ratio 16.4 (10.0-20.0)
[2024-08-13 07:35] LABS: Alanine Aminotransferase 322 U/L (7-40); Albumin 3.4 g/dL (3.2-4.8); Alkaline Phosphatase 117 U/L (46-116); Aspartate Aminotransferase 547 U/L (13-40); Bilirubin, Total 2.3 mg/dL (0.2-1.0); Blood Urea Nitrogen 30 mg/dL (9-23); Calcium 8.8 mg/dL (8.7-10.4); Carbon Dioxide 19 mmol/L (20-31); Chloride 111 mmol/L (98-107); Glucose 135 mg/dL (74-106); Potassium 5.1 mmol/L (3.5-5.1); Sodium 139 mmol/L (136-145); Total Protein 5.2 g/dL (5.7-8.2)
[2024-08-13 08:49] LABS: Rapid Influenza A Negative (Negative); Rapid Influenza B Negative (Negative)
[2024-08-13 08:50] LABS: COVID19 ANTIGEN SOFIA FIA NEGATIVE (NEGATIVE)
[2024-08-13] MEDS: FOLIC ACID 1 MG TAB PO ONE (09:07)
[2024-08-13] MEDS: THIAMINE 100mg/ml INJ (200mg/2ml VIAL) IV ONE (09:07)
[2024-08-13 10:36] LABS: Lactic Acid w/Reflex 2.3 mmol/L (0.4-2.0)
[2024-08-13 11:16] LABS: Folate (Folic Acid) 13.38 ng/mL (>5.38)
[2024-08-13 12:14] LABS: Lymphocytes # (auto) 1.4 10 ^3/uL (0.4-5.4); Nucleated Red Blood Cells % 0.1 %; Red Cell Distribution Width 20.2 % (11.8-14.3)
[2024-08-13 12:16] LABS: Basophils # (auto) 0.1 10 ^3/uL (0-0.2); Basophils % (auto) 0.4 % (0.0-2.0); Eosinophils # (auto) 0 10 ^3/uL (0-0.8); Eosinophils % (auto) 0.2 % (0.0-7.0); Hematocrit 29.4 % (41.0-53.0); Hemoglobin 9.5 g/dL (13.5-17.5); Lymphocytes % (auto) 9.8 % (10.0-50.0); Mean Corpuscular Hemoglobin 26.6 pg (28.0-32.0); Mean Corpuscular Hgb Conc. 32.4 g/dL (32.0-36.0); Mean Corpuscular Volume 82.1 fL (80.0-100.0); Monocytes % (auto) 6.7 % (0.0-12.0); Neutrophils % (auto) 82.9 % (37.0-80.0); Platelet Count (auto) 47 10^3/uL (140-450); Red Blood Cells 3.58 10^6/uL (4.5-5.90); White Blood Cell 14.5 10^3/uL (4.4-10.8)
--- NOTE | 2024-08-13 12:20 | DVHPN2 ---
Progress Note - Dictate Date Seen: Aug 13, 2024 Medical Necessity Reason Pt with a Central, PICC or Fol: No Subjective E: no major events o/n. c/o min right sided abd pain. vital signs Vital Sign Date Time Temp Pulse Resp B/P (MAP) Pulse Ox O2 Delivery O2 Flow Rate FiO2 08/13/24 11:52 128 20 94 08/13/24 08:00 98.6 129/67 (87) 98.6 08/13/24 07:46 Nasal Cannula* 4 36 Total Intake and Output 08/12/24 08/12/24 08/13/24 15:00 23:00 07:00 Intake Total 480 ml 1320 ml Balance 480 ml 1320 ml medications Current Medications Medications Dose Ordered Sig/Wei Route Start Time Stop Time Status Last Admin Dose Admin Sodium Chloride 1,000 ml @ 120 mls/hr Q8H20M IV 08/12/24 09:15 08/13/24 01:59 120 MLS/HR Acetaminophen/ Hydrocodone Bitart 1 tab Q4HP PRN PO 08/12/24 09:15 Ondansetron HCl 4 mg Q4HP PRN IV 08/12/24 09:15 08/12/24 09:52 4 MG Acetaminophen 650 mg Q6HP PRN PO 08/12/24 09:15 Morphine Sulfate 2 mg Q4HPRN PRN IV 08/12/24 09:15 08/12/24 22:13 2 MG Piperacillin Sod/ Tazobactam Sod 100 ml @ 25 mls/hr Q6HR IV 08/12/24 12:00 08/13/24 06:10 25 MLS/HR Albuterol 2.5 mg Q4HPRN PRN NEB 08/12/24 10:00 Albuterol 2.5 mg Q6HR NEB 08/12/24 12:00 08/13/24 11:52 2.5 MG Ipratropium [place] 0.5 mg Q4HPRN PRN NEB 08/12/24 10:00 Ipratropium [place] 0.5 mg Q6HR NEB 08/12/24 12:00 08/13/24 11:52 0.5 MG Hydralazine HCl 10 mg Q6HP PRN IV 08/12/24 10:00 Pantoprazole Sodium 40 mg DAILY IV 08/12/24 10:00 08/12/24 10:05 40 MG objective GEN: NAD ABD: soft but with RUQ TTP with guarding. laboratory and microbiology Laboratory Tests 08/13/24 11:35 08/13/24 06:55 Test 08/13/24 06:55 Range/Units Serum Glucose 135 H 74-106 mg/dL Assessment/Plan A: 1. Alcoholic cirrhosis 2. Cholecystitis 3. Left lower lobe pneumonia P: 1. high risk surgical patient. scheduled for percutaneous cholecystostomy tube. recommend transfer to [facility] for cholecystectomy Plan discussed with: Patient JHONATAN MEIER MD Aug 13, 2024 12:20
[2024-08-13] MEDS: HEPARIN IN NS 1000Units/500mL 1,500 ML ONE (13:20)
[2024-08-13] MEDS: IODIXANOL 320MG/ML 100ML BTL IV ONE (13:20)
--- NOTE | 2024-08-13 14:03 | DVH ---
EXAM: NM NM HIDA SCAN History: Acute kelly Comparison Study: None available TECHNIQUE: Following intravenous administration of 3.6 mCi of Tc-99m mebrofenin (Choletec), dynamic sequential images of the right upper abdomen were acquired for 60 minutes. An additional 4 hour delay ed planar image in the lateral right upper quadrant was also obtained. FINDINGS: The liver demonstrates prompt radiotracer uptake with clearance from blood pool. No focal perfusion d efects were noted. There was prompt excretion of the radiotracer into the biliary tree, without evide nce of biliary dilatation or obstruction. There was no filling of the gallbladder. IMPRESSION: 1. Nonvisualized gallbladder, consistent with acute cholecystitis.
[2024-08-13] MEDS: fentaNYL CITRATE 100 MCG/2 ML VL ONE (14:36)
[2024-08-13] MEDS: MIDAZOLAM HCL 2MG/2ML 2ml VIAL (1mg/ml) ONE (14:36)
[2024-08-13] MEDS: LIDOCAINE 2%HCL (LOCAL ANESTH.) INJ 20ML MDV ONE (14:37)
[2024-08-13] MEDS: GELATIN 1 SPONGE SIZE 50 TOP ONE (14:41)
--- NOTE | 2024-08-13 16:45 | DVH ---
XY PERCUTANEOUS CHOLANGIO, HISTORY: Possible hemorrhagic acute cholecystitis with acute drop in hemoglobin from 14 to 9 in a day . PROCEDURE: Informed consent was obtained . The patient was positioned supine on the interventional ta ble. The right groin was prepped with chlorhexidine which was allowed to dry and then draped sterilel y. Time out was performed. The right common femoral artery was accessed with real-time ultrasound kady dance using a micropuncture set, an image documenting patency recorded to PACS, and a 6 Fr vascular s gaudencio placed. The celiac artery was accessed with a Sos catheter, which was advanced into the celiac trunk. Angiogr ams were performed in PA projection. Microcatheter was advanced into the right hepatic artery and se lective angiogram(s) obtained. The cystic artery could not be visualized. The forward flow was too br isk and the microcatheter flow rate limits were reached limiting visualization. No embolization was p erformed. The catheter/sheath were removed and the arteriotomy closed using an Angioseal device. No i mmediate complication was identified. DAP [id number] FLUOROSCOPY TIME: 7.4 minutes. CONTRAST USED: 40 mL Isovue 370. SEDATION: Dr. Zeina Carr was personally responsible for the administration of moderate sedation during the procedure performed, including the use of an independent trained observer who had no other duties during the procedure. The drugs utilized were IV fentanyl and versed (see nursing log for details). The total time of supervision by the attending physician was approximately 60 minutes. FINDINGS: The celiac and hepatic arteries are widely patent. Brisk forward flow rate of the artery wi th contrast injection through the microcatheter unable to opacify the cystic artery after reaching th e limits of the injection rate of the catheters. No extravasation was seen. No embolization was perfo rmed. IMPRESSION: Brisk forward flow rate of the celiac and hepatic artery with contrast injection through the microcat heter unable to opacify the cystic artery after reaching the limits of the injection rate of the cath eters. No extravasation was seen. No embolization was performed. PLAN: Right leg straight for 2 hours. Please give 1 unit of platelets then plan for cholecystostomy t ube placement.
[2024-08-13] MEDS: ACETAMINOPHEN 325 MG TAB PO PRN (16:50)
--- NOTE | 2024-08-13 16:55 | DVHPNRES ---
Progress Note Date Seen: Aug 13, 2024 Resident Creating Document: ANT LIU RESIDENT Medical Necessity Reason Pt with a Central, PICC or Fol: No Subjective Review of Systems 48-year-old male patient with PMHx alcoholic cirrhosis, hypertension, peptic ulcer disease, asthma, obesity presented to the ED with a chief complaint of right upper quadrant pain for the past 2 days. Associated factors include nausea and vomiting. Patient denies fever/chills/chest pain/shortness of breaths. On arrival patient was tachycardic, tachypneic, requiring oxygen supplementation with 4 L. white cell count was elevated at 13 which increased to 15, normocytic anemia, lactic acidosis, and LFTs showing cholestasis pattern. CT abdomen showed cirrhotic liver morphology. Associated splenomegaly and lobe volume ascites. Cholelithiasis with gallbladder hydrops and possible gallbladder wall thickening which may indicate acute cholecystitis. Consequently HIDA scan completed which showed nonvisualized gallbladder consistent with acute cholecystitis. Without evidence of biliary dilation or obstruction. Surgeon was consulted, recommended higher level of care and percutaneous cholecystectomy tube placement which was completed 08/13. Per HLOC, patient does not need acute cholecystectomy Patient was admitted in this facility in 2019 with COVID-19 pneumonia and sepsis. Objective vital signs Vital Sign Date Time Temp Pulse Resp B/P (MAP) Pulse Ox O2 Delivery O2 Flow Rate FiO2 08/13/24 12:02 133 20 99 08/13/24 08:00 98.6 129/67 (87) 98.6 08/13/24 07:46 Nasal Cannula* 4 36 Total Intake and Output 08/12/24 08/12/24 08/13/24 15:00 23:00 07:00 Intake Total 480 ml 1320 ml Balance 480 ml 1320 ml medications Current Medications Medications Dose Ordered Sig/Wei Route Start Time Stop Time Status Last Admin Dose Admin Sodium Chloride 1,000 ml @ 120 mls/hr Q8H20M IV 08/12/24 09:15 08/13/24 01:59 120 MLS/HR Acetaminophen/ Hydrocodone Bitart 1 tab Q4HP PRN PO 08/12/24 09:15 Ondansetron HCl 4 mg Q4HP PRN IV 08/12/24 09:15 08/12/24 09:52 4 MG Acetaminophen 650 mg Q6HP PRN PO 08/12/24 09:15 Morphine Sulfate 2 mg Q4HPRN PRN IV 08/12/24 09:15 08/12/24 22:13 2 MG Piperacillin Sod/ Tazobactam Sod 100 ml @ 25 mls/hr Q6HR IV 08/12/24 12:00 08/13/24 12:34 25 MLS/HR Albuterol 2.5 mg Q4HPRN PRN NEB 08/12/24 10:00 Albuterol 2.5 mg Q6HR NEB 08/12/24 12:00 08/13/24 11:52 2.5 MG Ipratropium [place] 0.5 mg Q4HPRN PRN NEB 08/12/24 10:00 Ipratropium [place] 0.5 mg Q6HR NEB 08/12/24 12:00 08/13/24 11:52 0.5 MG Hydralazine HCl 10 mg Q6HP PRN IV 08/12/24 10:00 Pantoprazole Sodium 40 mg DAILY IV 08/12/24 10:00 08/12/24 10:05 40 MG Examination Patient lying in bed, in no acute distress General: Morbidly obese, afebrile, palor, mucosae are moist Cardiovascular: Regular S1 and S2. No murmurs, gallops or rubs. No JVD elevation. No pedal edema Respiratory: Normal B/L air entry on room air. Clear lung sounds on auscultation Abdomen: Soft, right quadrant tenderness, nondistended, normoactive bowel sounds, no rebound tenderness, no organomegaly, no masses Genitourinary: Deferred MSK/skin: Mobilizes 4 limbs. Skin is dry and warm Neurological: No motor, no sensitive deficits, normal speech. Pupils are isocoric and reactive. Psych/Mental Status: A/Ox3 laboratory and microbiology Laboratory Tests 08/13/24 11:35 08/13/24 06:55 Test 08/13/24 06:55 Range/Units Serum Glucose 135 H 74-106 mg/dL Microbiology Date/Time Source Procedure Growth Status 08/12/24 06:19 Blood Blood Culture - Preliminary NO GROWTH AFTER 24 HOURS OF INCUBATION. Resulted Labs and/or images reviewed: Labs reviewed by me, Image(s) reviewed by me Problem List/Assessment/Plan Problem List/Assessment/Plan Sepsis secondary to acute cholecystitis Cholestatic liver disease Rule out choledocholithiasis Lactic acidosis Alcoholic liver cirrhosis Chronic alcohol dependence Thrombocytopenia, rule out ITP Prelim blood culture negative CT abdomen showed shrunken nodular liver consistent with advanced hepatic cirrhosis. Associated splenomegaly and low volume abdominopelvic ascites. Cholelithiasis with gallbladder hydrops and possible gallbladder wall thickening which may indicate acute cholecystitis HIDA scan showed nonvisualized gallbladder, consistent with acute cholecystitis. Without evidence of biliary dilation or obstructive Continue IV Zosyn, starting 08/12 Continue Protonix 40 mg IV daily Continue IV saline 120 mL/hour MYLES, likely vasomotor Continue IV NS Monitor Communicated to the higher level of care, per Dr. Whitlock, [facility] - patient does not require urgent cholecystectomy since the patient is scheduled for cholecystectomy tube placement Plan discussed with patient in which all questions have been answered Case discussed with Dr. Hawkins Plan discussed with: Patient My Orders My Orders Orders - ANT LIU Procedure Category Date Status Time Drug Screen LAB 08/13/24 Logged 07:55 Mrsa Screen OSMAN 08/13/24 Uncollected 07:56 * [employer] CONS 08/13/24 Transmitted Consult Date of Service: Aug 13, 2024 Billing Provider: SORAYA QUINTANA MD Common Visit Codes: [id number] INP/OBS CARE(HIGH) ANT LIU Aug 13, 2024 16:55 SORAYA QUINTANA MD Aug 14, 2024 23:41
[2024-08-14] VITALS (18 sets, daily range): BP systolic 100–140; BP diastolic 66–85; PULSE 83–146; RESP 18–24; TEMP 98.4–98.8; O2SAT 92–97
[2024-08-14 06:39] LABS: Anion Gap 9 (5-15); BUN/Creatinine Ratio 21.7 (10.0-20.0); Carbon Dioxide 22 mmol/L (20-31); Glucose 105 mg/dL (74-106); Sodium 140 mmol/L (136-145)
[2024-08-14 06:40] LABS: Albumin 3.5 g/dL (3.2-4.8)
[2024-08-14 06:45] LABS: Alanine Aminotransferase 388 U/L (7-40); Alkaline Phosphatase 121 U/L (46-116); Aspartate Aminotransferase 461 U/L (13-40); Bilirubin, Total 2.2 mg/dL (0.2-1.0); Blood Urea Nitrogen 25 mg/dL (9-23); Calcium 8.6 mg/dL (8.7-10.4); Chloride 109 mmol/L (98-107); Total Protein 5.3 g/dL (5.7-8.2)
[2024-08-14 06:50] LABS: Basophils # (auto) 0 10 ^3/uL (0-0.2); Basophils % (auto) 0.3 % (0.0-2.0); Eosinophils # (auto) 0 10 ^3/uL (0-0.8); Hemoglobin 8.5 g/dL (13.5-17.5); Monocytes # (auto) 0.6 10 ^3/uL (0-1.3)
[2024-08-14 06:54] LABS: Eosinophils % (auto) 0.6 % (0.0-7.0); Hematocrit 26.4 % (41.0-53.0); Lymphocytes # (auto) 0.9 10 ^3/uL (0.4-5.4); Lymphocytes % (auto) 10.5 % (10.0-50.0); Mean Corpuscular Hemoglobin 26.3 pg (28.0-32.0); Mean Corpuscular Hgb Conc. 32.3 g/dL (32.0-36.0); Mean Corpuscular Volume 81.6 fL (80.0-100.0); Monocytes % (auto) 7.2 % (0.0-12.0); Neutrophils # (auto) 6.8 10 ^3/uL (1.6-8.6); Neutrophils % (auto) 81.4 % (37.0-80.0); Platelet Count (auto) 38 10^3/uL (140-450); Red Blood Cells 3.23 10^6/uL (4.5-5.90); Red Cell Distribution Width 19.9 % (11.8-14.3); White Blood Cell 8.3 10^3/uL (4.4-10.8)
[2024-08-14 08:02] LABS: INR 1.3 (0.9-1.15); Partial Thromboplastin Time 26.8 SEC (24.5-34.5); Prothrombin Time 13.4 sec (9.3-11.8)
[2024-08-14] MEDS: FOLIC ACID 1 MG, MULTIPLE VITAMIN 10 ML, MAGNESIUM SULF SDV 50% 8 MEQ, THIAMINE INJ 100... INJ ONE (11:15)
[2024-08-14] MEDS: metroNIDAZOLE 500MG/100ML 100 ML IV SCH (11:28)
[2024-08-14] MEDS: ALBUMIN 25% 100 ML IV ONE (11:30)
--- NOTE | 2024-08-14 12:01 | DVHPN2 ---
Progress Note - Dictate Date Seen: Aug 14, 2024 Medical Necessity Reason Pt with a Central, PICC or Fol: No Subjective E: transfer denied by [facility] 1 U PRBC given. percutaneous cholecystostomy cancelled d/t thrombocytopenia reports improvement in abd pain. vital signs Vital Sign Date Time Temp Pulse Resp B/P (MAP) Pulse Ox O2 Delivery O2 Flow Rate FiO2 08/14/24 09:00 98.4 118 20 134/66 (88) 95 98.4 08/14/24 06:18 Nasal Cannula* 2 28 Total Intake and Output 08/13/24 08/13/24 08/14/24 15:00 23:00 07:00 Intake Total 490 ml 401 ml Balance 490 ml 401 ml medications Current Medications Medications Dose Ordered Sig/Wei Route Start Time Stop Time Status Last Admin Dose Admin Acetaminophen/ Hydrocodone Bitart 1 tab Q4HP PRN PO 08/12/24 09:15 Ondansetron HCl 4 mg Q4HP PRN IV 08/12/24 09:15 08/12/24 09:52 4 MG Acetaminophen 650 mg Q6HP PRN PO 08/12/24 09:15 08/13/24 16:50 650 MG Morphine Sulfate 2 mg Q4HPRN PRN IV 08/12/24 09:15 08/12/24 22:13 2 MG Albuterol 2.5 mg Q4HPRN PRN NEB 08/12/24 10:00 Albuterol 2.5 mg Q6HR NEB 08/12/24 12:00 08/14/24 06:18 2.5 MG Ipratropium [place] 0.5 mg Q4HPRN PRN NEB 08/12/24 10:00 Ipratropium [place] 0.5 mg Q6HR NEB 08/12/24 12:00 08/14/24 06:18 0.5 MG Hydralazine HCl 10 mg Q6HP PRN IV 08/12/24 10:00 Pantoprazole Sodium 40 mg DAILY IV 08/12/24 10:00 08/14/24 11:28 40 MG Cefepime HCl 50 ml @ 12.5 mls/hr Q8HR IV 08/14/24 14:00 Metronidazole 100 ml @ 100 mls/hr Q8HR IV 08/14/24 10:00 08/14/24 11:28 100 MLS/HR objective GEN: NAD ABD: soft but with RUQ TTP with guarding. laboratory and microbiology Laboratory Tests 08/14/24 05:16 Test 08/14/24 05:16 Range/Units Serum Glucose 105 74-106 mg/dL Assessment/Plan A: 1. Alcoholic cirrhosis 2. Cholecystitis 3. Left lower lobe pneumonia P: 1. plt transfusion pending. 2. percut cholecystostomy tomorrow by IR Plan discussed with: Patient JHONATAN MEIER MD Aug 14, 2024 12:01
--- NOTE | 2024-08-14 14:53 | DVHPNRES ---
Progress Note Date Seen: Aug 14, 2024 Resident Creating Document: ANT LIU RESIDENT Medical Necessity Reason Pt with a Central, PICC or Fol: No Subjective Review of Systems 48-year-old male patient with PMHx alcoholic cirrhosis 4 years, hypertension, peptic ulcer disease, asthma, obesity presented to the ED with a chief complaint of right upper quadrant pain for the past week. Associated factors include jaundice, dark urine, nausea and vomiting. Patient denies fever/chills/chest pain/shortness of breaths. On arrival patient was tachycardic, tachypneic, requiring oxygen supplementation with 4 L. white cell count was elevated at 13 which increased to 15, normocytic anemia, lactic acidosis, and LFTs showing cholestasis pattern. CT abdomen showed cirrhotic liver morphology. Associated splenomegaly and lobe volume ascites. Cholelithiasis with gallbladder hydrops and possible gallbladder wall thickening which may indicate acute cholecystitis. Consequently HIDA scan completed which showed nonvisualized gallbladder consistent with acute cholecystitis. Without evidence of biliary dilation or obstruction. Surgeon was consulted, recommended higher level of care and percutaneous cholecystectomy tube placement which was completed 08/13. Per HLOC, patient does not need acute cholecystectomy Social history: Lives with , quit drinking 4 years back, denies smoking or drug use. Patient was admitted in this facility in 2019 with COVID-19 pneumonia and sepsis. Patient seen and examined at the bedside. Second unit of platelet apheresis unit ordered. Scheduled for percutaneous Objective vital signs Vital Sign Date Time Temp Pulse Resp B/P (MAP) Pulse Ox O2 Delivery O2 Flow Rate FiO2 08/14/24 13:58 112 22 95 08/14/24 13:52 Nasal Cannula 2.0 08/14/24 13:52 28 08/14/24 13:00 98.6 128/85 (99) 98.6 Total Intake and Output 08/13/24 08/13/24 08/14/24 15:00 23:00 07:00 Intake Total 490 ml 401 ml Balance 490 ml 401 ml medications Current Medications Medications Dose Ordered Sig/Wei Route Start Time Stop Time Status Last Admin Dose Admin Acetaminophen/ Hydrocodone Bitart 1 tab Q4HP PRN PO 08/12/24 09:15 Ondansetron HCl 4 mg Q4HP PRN IV 08/12/24 09:15 08/12/24 09:52 4 MG Acetaminophen 650 mg Q6HP PRN PO 08/12/24 09:15 08/13/24 16:50 650 MG Morphine Sulfate 2 mg Q4HPRN PRN IV 08/12/24 09:15 08/12/24 22:13 2 MG Albuterol 2.5 mg Q4HPRN PRN NEB 08/12/24 10:00 Albuterol 2.5 mg Q6HR NEB 08/12/24 12:00 08/14/24 13:52 2.5 MG Ipratropium [place] 0.5 mg Q4HPRN PRN NEB 08/12/24 10:00 Ipratropium [place] 0.5 mg Q6HR NEB 08/12/24 12:00 08/14/24 13:52 0.5 MG Hydralazine HCl 10 mg Q6HP PRN IV 08/12/24 10:00 Pantoprazole Sodium 40 mg DAILY IV 08/12/24 10:00 08/14/24 11:28 40 MG Cefepime HCl 50 ml @ 12.5 mls/hr Q8HR IV 08/14/24 14:00 Metronidazole 100 ml @ 100 mls/hr Q8HR IV 08/14/24 10:00 08/14/24 11:28 100 MLS/HR Examination Patient lying in bed, in no acute distress General: Morbidly obese, afebrile, palor, mucosae are moist Cardiovascular: Regular S1 and S2. No murmurs, gallops or rubs. No JVD elevation. No pedal edema Respiratory: Normal B/L air entry on room air. Clear lung sounds on auscultation Abdomen: Soft, right quadrant tenderness, nondistended, normoactive bowel sounds, no rebound tenderness, no organomegaly, no masses Genitourinary: Deferred MSK/skin: Mobilizes 4 limbs. Skin is dry and warm Neurological: No motor, no sensitive deficits, normal speech. Pupils are isocoric and reactive. Psych/Mental Status: A/Ox3 laboratory and microbiology Laboratory Tests 08/14/24 05:16 Test 08/14/24 05:16 Range/Units Serum Glucose 105 74-106 mg/dL Microbiology Date/Time Source Procedure Growth Status 08/12/24 06:19 Blood Blood Culture - Preliminary NO GROWTH AFTER 48 HOURS OF INCUBATION. Resulted Labs and/or images reviewed: Labs reviewed by me, Image(s) reviewed by me Problem List/Assessment/Plan Problem List/Assessment/Plan Sepsis secondary to acute cholecystitis Cholestatic liver disease Rule out choledocholithiasis Lactic acidosis-resolved Alcoholic liver cirrhosis Chronic alcohol dependence Prelim blood culture negative CT abdomen showed shrunken nodular liver consistent with advanced hepatic cirrhosis. Associated splenomegaly and low volume abdominopelvic ascites. Cholelithiasis with gallbladder hydrops and possible gallbladder wall thickening which may indicate acute cholecystitis HIDA scan showed nonvisualized gallbladder, consistent with acute cholecystitis. Without evidence of biliary dilation or obstructive Continue IV Zosyn, starting 08/12, switched to IV cefepime and IV metronidazole 08/14 Continue Protonix 40 mg IV daily Continue IV saline 120 mL/hour 08/14-1 dose of albumin 25g IV and 1 dose of IV Solu-Medrol 40 mg 08/13 - embolization by IR femoral axis, Brisk forward flow rate of the celiac and hepatic artery with contrast injection through the microcatheter unable to opacify the cystic artery after reaching the limits of the injection rate of the catheters. No extravasation was seen. No embolization was performed. Severe anemia Severe thrombocytopenia, rule out ITP Heme oncology consulted for thrombocytopenia 2nd unit of platelet apheresis transfusion 08/14 HIV, EBV, peripheral smear, hepatitis panel ordered Follow up with H&H, transfuse as needed to keep hemoglobin greater than 7 Follow up with Iron panel MYLES, likely vasomotor Discontinued IV NS, creatinine downtrending Monitor Hematuria Repeat UA ordered Diet, clear liquid for now, NPO starting midnight Communicated to the higher level of care, per Dr. Whitlock, [facility] - patient does not require urgent cholecystectomy since the patient is scheduled for cholecystectomy tube placement Plan discussed with patient in which all questions have been answered Case discussed with Dr. Hawkins Plan discussed with: Patient, Other (Sister at the bedside) My Orders My Orders Orders - ANT ILU RESIDENT Procedure Category Date Status Time Cefepime 2gm/50ml Ns PHA 08/14/24 In Process (Maxipime 2gm/50ml) 14:00 Metronidazole PHA 08/14/24 In Process 500mg/100ml (Flagyl 10:00 * Hematology/Oncology CONS 08/14/24 Transmitted Consult 11:08 Hepatitis B Surface LAB 08/14/24 In Process Antigen 11:08 Hepatitis B Surface LAB 08/14/24 In Process Antibody 11:08 Ebv Vca/Ea Igg LAB 08/14/24 In Process Antibodies 11:08 Folic Acid... PHA 08/14/24 Logged 11:15 Albumin 25% (Albutein) PHA 08/14/24 Logged 11:30 Methylprednisolone PHA 08/14/24 Logged Sod Succ (Solu Medrol 14:45 Date of Service: Aug 14, 2024 Billing Provider: SORAYA QUINTANA MD Common Visit Codes: [id number] INP/OBS CARE(HIGH) ANT LIU RESIDENT Aug 14, 2024 14:53 SORAYA QUINTANA MD Aug 14, 2024 23:44
[2024-08-14] MEDS: methylPREDNISolone SOD SUCC 40 MG/ML VL IV ONE (17:16)
[2024-08-14] MEDS: CEFEPIME 2GM/50ML NS 50 ML IV SCH (17:16)
[2024-08-14 18:50] LABS: % Iron Saturation 7.8 % (20-55)
[2024-08-15] VITALS (25 sets, daily range): BP systolic 119–156; BP diastolic 75–90; PULSE 81–110; RESP 16–97; TEMP 97.9–98.6; O2SAT 18–99
[2024-08-15 07:21] LABS: Basophils # (auto) 0 10 ^3/uL (0-0.2); Eosinophils # (auto) 0 10 ^3/uL (0-0.8); Hematocrit 27.8 % (41.0-53.0); Monocytes # (auto) 0.3 10 ^3/uL (0-1.3); Platelet Count (auto) 28 10^3/uL (140-450)
[2024-08-15 07:24] LABS: Basophils % (auto) 0.1 % (0.0-2.0); Hemoglobin 8.9 g/dL (13.5-17.5); Lymphocytes # (auto) 0.3 10 ^3/uL (0.4-5.4); Lymphocytes % (auto) 5.7 % (10.0-50.0); Mean Corpuscular Hemoglobin 26.2 pg (28.0-32.0); Mean Corpuscular Hgb Conc. 32.2 g/dL (32.0-36.0); Mean Corpuscular Volume 81.5 fL (80.0-100.0); Monocytes % (auto) 4.8 % (0.0-12.0); Neutrophils # (auto) 5.5 10 ^3/uL (1.6-8.6); Neutrophils % (auto) 89.4 % (37.0-80.0); Nucleated Red Blood Cells % 0.2 %; Red Blood Cells 3.41 10^6/uL (4.5-5.90); Red Cell Distribution Width 19.4 % (11.8-14.3); White Blood Cell 6.1 10^3/uL (4.4-10.8)
[2024-08-15 07:26] LABS: Albumin 3.5 g/dL (3.2-4.8); Anion Gap 11 (5-15); BUN/Creatinine Ratio 16.1 (10.0-20.0); Blood Urea Nitrogen 15 mg/dL (9-23); Carbon Dioxide 21 mmol/L (20-31); Potassium 3.8 mmol/L (3.5-5.1); Sodium 140 mmol/L (136-145)
[2024-08-15 07:27] LABS: Alanine Aminotransferase 285 U/L (7-40); Alkaline Phosphatase 126 U/L (46-116); Aspartate Aminotransferase 179 U/L (13-40); Chloride 108 mmol/L (98-107); Glucose 153 mg/dL (74-106)
[2024-08-15 07:28] LABS: Bilirubin, Total 2.2 mg/dL (0.2-1.0); Calcium 8.2 mg/dL (8.7-10.4); Total Protein 5.4 g/dL (5.7-8.2)
[2024-08-15 10:48] LABS: Basophils # (auto) 0 10 ^3/uL (0-0.2); Eosinophils # (auto) 0 10 ^3/uL (0-0.8); Hemoglobin 9.7 g/dL (13.5-17.5); Lymphocytes # (auto) 0.4 10 ^3/uL (0.4-5.4); Monocytes # (auto) 0.4 10 ^3/uL (0-1.3); White Blood Cell 6.8 10^3/uL (4.4-10.8)
[2024-08-15 10:51] LABS: Hematocrit 29.3 % (41.0-53.0); Lymphocytes % (auto) 5.7 % (10.0-50.0); Mean Corpuscular Hemoglobin 26.9 pg (28.0-32.0); Mean Corpuscular Volume 81.3 fL (80.0-100.0); Monocytes % (auto) 5.3 % (0.0-12.0); Neutrophils # (auto) 6.1 10 ^3/uL (1.6-8.6); Nucleated Red Blood Cells % 0.1 %; Platelet Count (auto) 29 10^3/uL (140-450); Red Cell Distribution Width 19.2 % (11.8-14.3)
--- NOTE | 2024-08-15 11:08 | DVHPN2 ---
Progress Note - Dictate Date Seen: Aug 15, 2024 Medical Necessity Reason Pt with a Central, PICC or Fol: No Subjective E: no major events o/n. pt is in procedure curr (percut cholecystostomy by IR) vital signs Vital Sign Date Time Temp Pulse Resp B/P (MAP) Pulse Ox O2 Delivery O2 Flow Rate FiO2 08/15/24 08:36 98.4 96 17 119/80 (93) 96 98.4 08/15/24 08:00 Nasal Cannula* 2 28 Total Intake and Output 08/14/24 08/14/24 08/15/24 15:00 23:00 07:00 Intake Total 425 ml 888 ml Balance 425 ml 888 ml medications Current Medications Medications Dose Ordered Sig/Wei Route Start Time Stop Time Status Last Admin Dose Admin Acetaminophen/ Hydrocodone Bitart 1 tab Q4HP PRN PO 08/12/24 09:15 Ondansetron HCl 4 mg Q4HP PRN IV 08/12/24 09:15 08/12/24 09:52 4 MG Acetaminophen 650 mg Q6HP PRN PO 08/12/24 09:15 08/13/24 16:50 650 MG Morphine Sulfate 2 mg Q4HPRN PRN IV 08/12/24 09:15 08/12/24 22:13 2 MG Albuterol 2.5 mg Q4HPRN PRN NEB 08/12/24 10:00 Albuterol 2.5 mg Q6HR NEB 08/12/24 12:00 08/15/24 07:13 2.5 MG Ipratropium [place] 0.5 mg Q4HPRN PRN NEB 08/12/24 10:00 Ipratropium [place] 0.5 mg Q6HR NEB 08/12/24 12:00 08/15/24 07:13 0.5 MG Hydralazine HCl 10 mg Q6HP PRN IV 08/12/24 10:00 Pantoprazole Sodium 40 mg DAILY IV 08/12/24 10:00 08/15/24 08:38 40 MG Cefepime HCl 50 ml @ 12.5 mls/hr Q8HR IV 08/14/24 14:00 08/15/24 05:40 12.5 MLS/HR Metronidazole 100 ml @ 100 mls/hr Q8HR IV 08/14/24 10:00 08/15/24 05:40 100 MLS/HR laboratory and microbiology Laboratory Tests 08/15/24 10:24 08/15/24 05:46 Test 08/15/24 05:46 Range/Units Serum Glucose 153 H 74-106 mg/dL Assessment/Plan A: 1. Alcoholic cirrhosis 2. Cholecystitis 3. Left lower lobe pneumonia P: 1. curr getting IR cholecystostomy done. Plan discussed with: Spouse JHONATAN MEIER MD Aug 15, 2024 11:08
[2024-08-15 12:36] LABS: Platelet Estimate Decreased
[2024-08-15] MEDS: methylPREDNISolone SOD SUCC 40 MG/ML VL IM ONE (13:09)
--- NOTE | 2024-08-15 16:12 | DVHPNRES ---
Progress Note Date Seen: Aug 15, 2024 Resident Creating Document: ANT LIU RESIDENT Medical Necessity Reason Pt with a Central, PICC or Fol: No Subjective Review of Systems 48-year-old male patient with PMHx alcoholic cirrhosis 4 years, hypertension, peptic ulcer disease, asthma, obesity presented to the ED with a chief complaint of right upper quadrant pain for the past week. Associated factors include jaundice, dark urine, nausea and vomiting. Patient denies fever/chills/chest pain/shortness of breaths. On arrival patient was tachycardic, tachypneic, requiring oxygen supplementation with 4 L. white cell count was elevated at 13 which increased to 15, normocytic anemia, lactic acidosis, and LFTs showing cholestasis pattern. CT abdomen showed cirrhotic liver morphology. Associated splenomegaly and lobe volume ascites. Cholelithiasis with gallbladder hydrops and possible gallbladder wall thickening which may indicate acute cholecystitis. Consequently HIDA scan completed which showed nonvisualized gallbladder consistent with acute cholecystitis. Without evidence of biliary dilation or obstruction. Surgeon was consulted, recommended higher level of care and percutaneous cholecystectomy tube placement which was completed 08/13. Per HLOC, patient does not need acute cholecystectomy Social history: Lives with , quit drinking 4 years back, denies smoking or drug use. Patient was admitted in this facility in 2019 with COVID-19 pneumonia and sepsis. 08/14 - Patient seen and examined at the bedside. Second unit of platelet apheresis unit ordered. 08/15-patient seen and examined at bedside. Platelets downtrending even after 2 units of platelet transfusion. Cholecystectomy tube placement postponed given the thrombocytopenia. Another 2 units of platelets diaphoresis ordered. Heme oncology consulted. Objective vital signs Vital Sign Date Time Temp Pulse Resp B/P (MAP) Pulse Ox O2 Delivery O2 Flow Rate FiO2 08/15/24 13:21 98.3 102 16 151/87 (108) 95 98.3 08/15/24 12:57 Nasal Cannula 2.0 08/15/24 12:57 28 Total Intake and Output 08/14/24 08/14/24 08/15/24 15:00 23:00 07:00 Intake Total 425 ml 888 ml Balance 425 ml 888 ml medications Current Medications Medications Dose Ordered Sig/Wei Route Start Time Stop Time Status Last Admin Dose Admin Acetaminophen/ Hydrocodone Bitart 1 tab Q4HP PRN PO 08/12/24 09:15 Ondansetron HCl 4 mg Q4HP PRN IV 08/12/24 09:15 08/12/24 09:52 4 MG Acetaminophen 650 mg Q6HP PRN PO 08/12/24 09:15 08/13/24 16:50 650 MG Morphine Sulfate 2 mg Q4HPRN PRN IV 08/12/24 09:15 08/12/24 22:13 2 MG Albuterol 2.5 mg Q4HPRN PRN NEB 08/12/24 10:00 Albuterol 2.5 mg Q6HR NEB 08/12/24 12:00 08/15/24 12:57 2.5 MG Ipratropium [place] 0.5 mg Q4HPRN PRN NEB 08/12/24 10:00 Ipratropium [place] 0.5 mg Q6HR NEB 08/12/24 12:00 08/15/24 12:57 0.5 MG Hydralazine HCl 10 mg Q6HP PRN IV 08/12/24 10:00 Pantoprazole Sodium 40 mg DAILY IV 08/12/24 10:00 08/15/24 08:38 40 MG Cefepime HCl 50 ml @ 12.5 mls/hr Q8HR IV 08/14/24 14:00 08/15/24 15:50 12.5 MLS/HR Metronidazole 100 ml @ 100 mls/hr Q8HR IV 08/14/24 10:00 08/15/24 13:06 100 MLS/HR Examination Patient lying in bed, in no acute distress General: Morbidly obese, afebrile, palor, mucosae are moist Cardiovascular: Regular S1 and S2. No murmurs, gallops or rubs. No JVD elevation. No pedal edema Respiratory: Normal B/L air entry on room air. Clear lung sounds on auscultation Abdomen: Soft, right quadrant tenderness, nondistended, normoactive bowel sounds, no rebound tenderness, no organomegaly, no masses Genitourinary: Deferred MSK/skin: Mobilizes 4 limbs. Skin is dry and warm Neurological: No motor, no sensitive deficits, normal speech. Pupils are isocoric and reactive. Psych/Mental Status: A/Ox3 laboratory and microbiology Laboratory Tests 08/15/24 10:24 08/15/24 05:46 Test 08/15/24 05:46 Range/Units Serum Glucose 153 H 74-106 mg/dL Microbiology Date/Time Source Procedure Growth Status 08/14/24 00:28 Nose MRSA Screen - Final Complete 08/12/24 06:19 Blood Blood Culture - Preliminary NO GROWTH AFTER 72 HOURS OF INCUBATION. Resulted Labs and/or images reviewed: Labs reviewed by me, Image(s) reviewed by me Problem List/Assessment/Plan Problem List/Assessment/Plan Sepsis secondary to acute cholecystitis Cholestatic liver disease Rule out choledocholithiasis Lactic acidosis-resolved Alcoholic liver cirrhosis Chronic alcohol dependence Prelim blood culture negative CT abdomen showed shrunken nodular liver consistent with advanced hepatic cirrhosis. Associated splenomegaly and low volume abdominopelvic ascites. Cholelithiasis with gallbladder hydrops and possible gallbladder wall thickening which may indicate acute cholecystitis HIDA scan showed nonvisualized gallbladder, consistent with acute cholecystitis. Without evidence of biliary dilation or obstructive Continue IV Zosyn, starting 08/12, switched to IV cefepime and IV metronidazole 08/14 Continue Protonix 40 mg IV daily Continue IV saline 120 mL/hour 08/14-1 dose of albumin 25g IV and 1 dose of IV Solu-Medrol 40 mg 08/13 - embolization by IR femoral axis, Brisk forward flow rate of the celiac and hepatic artery with contrast injection through the microcatheter unable to opacify the cystic artery after reaching the limits of the injection rate of the catheters. No extravasation was seen. No embolization was performed. 08/15-possible cholecystectomy tube placement 08/16. NPO after midnight. Spleen ultrasound ordered Severe anemia, likely due to iron-deficiency Severe thrombocytopenia, rule out ITP Heme oncology consulted for thrombocytopenia 2nd unit of platelet apheresis transfusion 08/14 Another 2 units of platelet apheresis order 08/15 HIV negative, EBV, peripheral smear, hepatitis panel ordered Follow up with H&H, transfuse as needed to keep hemoglobin greater than 7 Iron panel shows iron-deficiency MYLES, likely vasomotor Discontinued IV NS, creatinine downtrending Monitor Hematuria Repeat UA ordered Diet, clear liquid for now, NPO starting midnight for cholecystectomy tube placement tomorrow. Pending 2 units of platelet transfusion. CBC in a.m.. Communicated to the higher level of care, per Dr. Whitlock, [facility] - patient does not require urgent cholecystectomy since the patient is scheduled for cholecystectomy tube placement Plan discussed with patient in which all questions have been answered Case discussed with Dr. Hawkins Plan discussed with: Patient My Orders My Orders Orders - ANT LIU Procedure Category Date Status Time Discontinue Tele YANA 08/15/24 In Process 06:53 Transfer Orders XFER 08/15/24 Transmitted 06:53 Pheresis Platelets BBK 08/15/24 Logged 14:46 Abdomen Limited US 08/15/24 Verified 16:09 Dietary Evaluation Review Comments: 1. Recommend timely diet advancement as medically able to Low Fat diet 2. Consider addition of oral nutrition supplements TID to optimize nutrition; recommend Ensure Clear (240 kcal, 8 gm pro, 0 gm fat per carton) 3. Pt not to go >7 days with inadequate nutrition; if unable to advance diet, consider alternative means of nutrition 4. Appreciate collection of weekly wt's to monitor gains/losses Expected Outcomes/Goals: Improved nutritional status, weight maintenance ANT LIU Aug 15, 2024 16:12
--- NOTE | 2024-08-15 17:37 | DVH ---
EXAM: US SPLEEN CLINICAL HISTORY: r/o splenic sequestration given thrombocytopenia TECHNIQUE: Grayscale and limited color flow doppler ultrasound of the spleen is performed. COMPARISON: US GALLBLADDER on DOS: 08/12/24, LIVER on DOS: 11/09/19 Findings/Impression: Spleen is enlarged and measures 15.9 x 12.6 x 11.3 cm. Homogeneous echotexture. No evidence of hypoechoic regions within the spleen. Cannot exclude splenic sequestration. Correlate with hemoglobin.
[2024-08-15] MEDS ORDERED: methylPREDNISolone SOD SUCC 40 MG/ML VL IV SCH (22:00)
[2024-08-16] VITALS (17 sets, daily range): BP systolic 141–161; BP diastolic 84–90; PULSE 77–111; RESP 13–24; TEMP 97.5–98.3; O2SAT 91–100
[2024-08-16 02:06] LABS: EBV Ab VCA IgG Antibody 44.9 U/mL (0.0-17.9)
[2024-08-16 07:52] LABS: Basophils # (auto) 0 10 ^3/uL (0-0.2); Eosinophils # (auto) 0 10 ^3/uL (0-0.8); Hemoglobin 10.3 g/dL (13.5-17.5); Lymphocytes # (auto) 0.3 10 ^3/uL (0.4-5.4); White Blood Cell 5.7 10^3/uL (4.4-10.8)
[2024-08-16 07:55] LABS: Lymphocytes % (auto) 5.5 % (10.0-50.0); Mean Corpuscular Hemoglobin 26.2 pg (28.0-32.0); Mean Corpuscular Volume 81.9 fL (80.0-100.0); Monocytes # (auto) 0.4 10 ^3/uL (0-1.3); Monocytes % (auto) 6.3 % (0.0-12.0); Neutrophils % (auto) 88.2 % (37.0-80.0); Nucleated Red Blood Cells % 0.3 %; Platelet Count (auto) 36 10^3/uL (140-450); Red Blood Cells 3.91 10^6/uL (4.5-5.90); Red Cell Distribution Width 19.2 % (11.8-14.3)
[2024-08-16 07:59] LABS: Albumin 3.5 g/dL (3.2-4.8); Anion Gap 10 (5-15); BUN/Creatinine Ratio 19.8 (10.0-20.0); Blood Urea Nitrogen 18 mg/dL (9-23); Carbon Dioxide 23 mmol/L (20-31); Potassium 3.7 mmol/L (3.5-5.1); Sodium 144 mmol/L (136-145)
[2024-08-16 08:00] LABS: Alanine Aminotransferase 206 U/L (7-40); Alkaline Phosphatase 128 U/L (46-116); Aspartate Aminotransferase 70 U/L (13-40); Bilirubin, Total 2.7 mg/dL (0.2-1.0); Calcium 8.7 mg/dL (8.7-10.4); Chloride 111 mmol/L (98-107); Glucose 124 mg/dL (74-106); Total Protein 5.6 g/dL (5.7-8.2)
[2024-08-16] MEDS: IODIXANOL 320MG/ML 100ML BTL IV ONE (09:41)
[2024-08-16] MEDS: MIDAZOLAM HCL 2MG/2ML 2ml VIAL (1mg/ml) ONE (09:43)
[2024-08-16] MEDS: LIDOCAINE 2%HCL (LOCAL ANESTH.) INJ 20ML MDV ONE (09:43)
[2024-08-16] MEDS: fentaNYL CITRATE 100 MCG/2 ML VL ONE (09:43)
[2024-08-16 11:04] LABS: Hepatitis B Surface Antibody Negative (Negative); Hepatitis B Surface Antigen Negative (Negative)
--- NOTE | 2024-08-16 12:03 | DVHPN2 ---
Progress Note - Dictate Date Seen: Aug 16, 2024 Medical Necessity Reason Pt with a Central, PICC or Fol: No Subjective E: no major events o/n. c/o min pain. vital signs Vital Sign Date Time Temp Pulse Resp B/P (MAP) Pulse Ox O2 Delivery O2 Flow Rate FiO2 08/16/24 09:00 97.9 93 16 145/86 (105) 94 97.9 08/16/24 08:01 Nasal Cannula 2.0 08/16/24 08:01 28 Total Intake and Output 08/15/24 08/15/24 08/16/24 15:00 23:00 07:00 Intake Total 100 ml 1735 ml 1113 ml Output Total 700 ml Balance 100 ml 1735 ml 413 ml medications Current Medications Medications Dose Ordered Sig/Wei Route Start Time Stop Time Status Last Admin Dose Admin Acetaminophen/ Hydrocodone Bitart 1 tab Q4HP PRN PO 08/12/24 09:15 Ondansetron HCl 4 mg Q4HP PRN IV 08/12/24 09:15 08/12/24 09:52 4 MG Acetaminophen 650 mg Q6HP PRN PO 08/12/24 09:15 08/13/24 16:50 650 MG Morphine Sulfate 2 mg Q4HPRN PRN IV 08/12/24 09:15 08/12/24 22:13 2 MG Albuterol 2.5 mg Q4HPRN PRN NEB 08/12/24 10:00 Albuterol 2.5 mg Q6HR NEB 08/12/24 12:00 08/16/24 08:01 2.5 MG Ipratropium [place] 0.5 mg Q4HPRN PRN NEB 08/12/24 10:00 Ipratropium [place] 0.5 mg Q6HR NEB 08/12/24 12:00 08/16/24 08:01 0.5 MG Hydralazine HCl 10 mg Q6HP PRN IV 08/12/24 10:00 Pantoprazole Sodium 40 mg DAILY IV 08/12/24 10:00 08/16/24 08:39 40 MG Cefepime HCl 50 ml @ 12.5 mls/hr Q8HR IV 08/14/24 14:00 08/16/24 06:43 12.5 MLS/HR Metronidazole 100 ml @ 100 mls/hr Q8HR IV 08/14/24 10:00 08/16/24 05:29 100 MLS/HR objective GEN: NAD ABD: cholecystomy drain intact. laboratory and microbiology Laboratory Tests 08/16/24 07:09 Test 08/16/24 07:09 Range/Units Serum Glucose 124 H 74-106 mg/dL Assessment/Plan A: 1. Alcoholic cirrhosis 2. Cholecystitis 3. Left lower lobe pneumonia P: 1. s/p percutaneous cholecystostomy 2. cont curr tx. 3. poss future cholecystectomy at [facility] Dietary Evaluation Review Comments: 1. Recommend timely diet advancement as medically able to Low Fat diet 2. Consider addition of oral nutrition supplements TID to optimize nutrition; recommend Ensure Clear (240 kcal, 8 gm pro, 0 gm fat per carton) 3. Pt not to go >7 days with inadequate nutrition; if unable to advance diet, consider alternative means of nutrition 4. Appreciate collection of weekly wt's to monitor gains/losses Expected Outcomes/Goals: Improved nutritional status, weight maintenance Plan discussed with: Patient JHONATAN MEIER MD Aug 16, 2024 12:03
--- NOTE | 2024-08-16 12:09 | DVH ---
XY PERCUTANEOUS CHOLANGIO, HISTORY: CHOLECYSTOMY TUBE PLACEMENT PROCEDURE: Informed consent was obtained. The patient was placed in supine position, and initial limi alma ultrasound evaluation of the RUQ abdomen was obtained. The skin overlying the gallbladder was pre pped with chlorhexidine which was allowed to dry and draped in the usual sterile fashion. Time out wa s performed. IV sedation and 1% lidocaine local anesthetic were administered. Using US needle biopsy guide, a 21 g Accu Stick needle was advanced into the gallbladder via a intercostal , trans-peritonea l approach. Following aspiration of bile, a small amount of contrast was injected to delineate the vi scous. The needle was then exchanged over mandrill wire to a non-vascular access set, through which a 035 guidewire was advanced into the gallbladder. Following serial dilation, an 8.5 Iranian multipurpo se pigtail catheter was placed within the gallbladder. Approximately 3 cc of fluid was withdrawn and sent to the laboratory for analysis. The drain was secured in place and attached to gravity drainage. A sterile dressing was applied. No immediate complication was identified. DAP FLUOROSCOPY TIME: 1.5 minutes. CONTRAST USED: 15 mL . SEDATION: Dr. Zeina Carr was personally responsible for the administration of moderate sedation during the procedure performed, including the use of an independent trained observer who had no other duties during the procedure. The drugs utilized were IV fentanyl and versed (see nursing log for details). The total time of supervision by the attending physician was [id number] minutes. FINDINGS: Limited US scan of the right upper abdomen demonstrates a mildly distended gallbladder. Asp irated bile is bloody and thick. Contrast is seen extravasating from the gallbladder. Completion imag e demonstrates good positioning of the drainage catheter. The cystic duct is not seen. IMPRESSION: US/fluoro-guided percutaneous 8.5 Iranian cholecystostomy tube placement. Contrast is seen extravasating from the gallbladder concerning for a gallbladder perforation. PLAN: This tube will need to remain in place for at least 6-8 weeks before removal, so as to prevent bile leakage. If cholecystectomy is not planned, please have patient follow-up with IR at discharge t o schedule cholangiogram in 6-8 weeks. If cystic duct patency and tract maturation is established, we will consider clamp trial prior to removal of the tube in 1-2 weeks.
[2024-08-16] MEDS: HYDROcodone-ACET 5/325MG TAB PO PRN (14:40)
--- NOTE | 2024-08-16 17:49 | DVHPNRES ---
Progress Note Date Seen: Aug 16, 2024 Resident Creating Document: ANT LIU RESIDENT Medical Necessity Reason Pt with a Central, PICC or Fol: No Subjective Review of Systems 48-year-old male patient with PMHx alcoholic cirrhosis 4 years, hypertension, peptic ulcer disease, asthma, obesity presented to the ED with a chief complaint of right upper quadrant pain for the past week. Associated factors include jaundice, dark urine, nausea and vomiting. Patient denies fever/chills/chest pain/shortness of breaths. On arrival patient was tachycardic, tachypneic, requiring oxygen supplementation with 4 L. white cell count was elevated at 13 which increased to 15, normocytic anemia, lactic acidosis, and LFTs showing cholestasis pattern. CT abdomen showed cirrhotic liver morphology. Associated splenomegaly and lobe volume ascites. Cholelithiasis with gallbladder hydrops and possible gallbladder wall thickening which may indicate acute cholecystitis. Consequently HIDA scan completed which showed nonvisualized gallbladder consistent with acute cholecystitis. Without evidence of biliary dilation or obstruction. Surgeon was consulted, recommended higher level of care and percutaneous cholecystectomy tube placement which was completed 08/13. Per HLOC, patient does not need acute cholecystectomy Social history: Lives with , quit drinking 4 years back, denies smoking or drug use. Patient was admitted in this facility in 2019 with COVID-19 pneumonia and sepsis. 08/14 - Patient seen and examined at the bedside. Second unit of platelet apheresis unit ordered. 08/15-patient seen and examined at bedside. Platelets downtrending even after 2 units of platelet transfusion. Cholecystectomy tube placement postponed given the thrombocytopenia. Another 2 units of platelets diaphoresis ordered. Heme oncology consulted. 08/16 patient seen and examined at bedside. No acute distress, LFT downtrending. Alk-phos stable. Underwent cholecystectomy tube placement by IR. Objective vital signs Vital Sign Date Time Temp Pulse Resp B/P (MAP) Pulse Ox O2 Delivery O2 Flow Rate FiO2 08/16/24 16:40 97.5 100 18 149/89 (109) 91 97.5 08/16/24 13:30 Nasal Cannula* 2 28 Total Intake and Output 08/15/24 08/15/24 08/16/24 15:00 23:00 07:00 Intake Total 100 ml 1735 ml 1113 ml Output Total 700 ml Balance 100 ml 1735 ml 413 ml medications Current Medications Medications Dose Ordered Sig/Wei Route Start Time Stop Time Status Last Admin Dose Admin Acetaminophen/ Hydrocodone Bitart 1 tab Q4HP PRN PO 08/12/24 09:15 08/16/24 14:40 1 TAB Ondansetron HCl 4 mg Q4HP PRN IV 08/12/24 09:15 08/12/24 09:52 4 MG Acetaminophen 650 mg Q6HP PRN PO 08/12/24 09:15 08/13/24 16:50 650 MG Morphine Sulfate 2 mg Q4HPRN PRN IV 08/12/24 09:15 08/12/24 22:13 2 MG Albuterol 2.5 mg Q4HPRN PRN NEB 08/12/24 10:00 Albuterol 2.5 mg Q6HR NEB 08/12/24 12:00 08/16/24 13:29 2.5 MG Ipratropium [place] 0.5 mg Q4HPRN PRN NEB 08/12/24 10:00 Ipratropium [place] 0.5 mg Q6HR NEB 08/12/24 12:00 08/16/24 13:30 0.5 MG Hydralazine HCl 10 mg Q6HP PRN IV 08/12/24 10:00 Pantoprazole Sodium 40 mg DAILY IV 08/12/24 10:00 08/16/24 08:39 40 MG Cefepime HCl 50 ml @ 12.5 mls/hr Q8HR IV 08/14/24 14:00 08/16/24 14:33 12.5 MLS/HR Metronidazole 100 ml @ 100 mls/hr Q8HR IV 08/14/24 10:00 08/16/24 13:12 100 MLS/HR Examination Patient lying in bed, in no acute distress General: Morbidly obese, afebrile, palor, mucosae are moist Cardiovascular: Regular S1 and S2. No murmurs, gallops or rubs. No JVD elevation. No pedal edema Respiratory: Normal B/L air entry on room air. Clear lung sounds on auscultation Abdomen: Soft, right quadrant tenderness, nondistended, normoactive bowel sounds, no rebound tenderness, no organomegaly, no masses Genitourinary: Deferred MSK/skin: Mobilizes 4 limbs. Skin is dry and warm Neurological: No motor, no sensitive deficits, normal speech. Pupils are isocoric and reactive. Psych/Mental Status: A/Ox3 laboratory and microbiology Laboratory Tests 08/16/24 07:09 Test 08/16/24 07:09 Range/Units Serum Glucose 124 H 74-106 mg/dL Microbiology Date/Time Source Procedure Growth Status 08/14/24 00:28 Nose MRSA Screen - Final Complete 08/12/24 06:19 Blood Blood Culture - Preliminary NO GROWTH AFTER 72 HOURS OF INCUBATION. Resulted Problem List/Assessment/Plan Problem List/Assessment/Plan Sepsis secondary to acute cholecystitis status post cholecystectomy tube placement 08/16 Cholestatic liver disease Rule out choledocholithiasis Lactic acidosis-resolved Alcoholic liver cirrhosis Chronic alcohol dependence Prelim blood culture negative CT abdomen showed shrunken nodular liver consistent with advanced hepatic cirrhosis. Associated splenomegaly and low volume abdominopelvic ascites. Cholelithiasis with gallbladder hydrops and possible gallbladder wall thickening which may indicate acute cholecystitis HIDA scan showed nonvisualized gallbladder, consistent with acute cholecystitis. Without evidence of biliary dilation or obstructive Continue IV Zosyn, starting 08/12, switched to IV cefepime and IV metronidazole 08/14 Continue Protonix 40 mg IV daily Continue IV saline 120 mL/hour 08/14-1 dose of albumin 25g IV and 1 dose of IV Solu-Medrol 40 mg 08/13 - embolization by IR femoral axis, Brisk forward flow rate of the celiac and hepatic artery with contrast injection through the microcatheter unable to opacify the cystic artery after reaching the limits of the injection rate of the catheters. No extravasation was seen. No embolization was performed. 08/15-possible cholecystectomy tube placement 08/16. NPO after midnight. Spleen ultrasound ordered 08/16 IR guarded cholecystectomy tube placement. US/fluoro-guided percutaneous 8.5 Nepali cholecystostomy tube placement. Contrast is seen extraocular visiting from the gallbladder concerning for gallbladder perforation. Tube will remain in place for at least 6-8 weeks before removal.If cholecystectomy is not planned, please have patient follow-up with IR at discharge to schedule cholangiogram in 6-8 weeks. If cystic duct patency and tract maturation is established, we will consider clamp trial prior to removal of the tube in 1-2 weeks. Severe anemia, likely due to iron-deficiency Severe thrombocytopenia, rule out ITP status post 04 platelet unit transfusion Heme oncology consulted for thrombocytopenia 2nd unit of platelet apheresis transfusion 08/14 Another 2 units of platelet apheresis order 08/15 HIV negative, EBV, peripheral smear, hepatitis panel ordered Follow up with H&H, transfuse as needed to keep hemoglobin greater than 7 Iron panel shows iron-deficiency MYLES, likely vasomotor Discontinued IV NS, creatinine downtrending Monitor Hematuria Monitor Diet, clear liquid for now, Communicated to the higher level of care, per Dr. Whitlock [facility] - patient does not require urgent cholecystectomy since the patient is scheduled for cholecystectomy tube placement Plan discussed with patient in which all questions have been answered Case discussed with Dr. Hawkins Plan discussed with: Patient, Other (Cousin and mother at the bedside) My Orders My Orders Orders - ANT LIU Procedure Category Date Status Time Clear Liq Diet DIET 08/16/24 Transmitted Lunch Dietary Evaluation Review Comments: 1. Recommend timely diet advancement as medically able to Low Fat diet 2. Consider addition of oral nutrition supplements TID to optimize nutrition; recommend Ensure Clear (240 kcal, 8 gm pro, 0 gm fat per carton) 3. Pt not to go >7 days with inadequate nutrition; if unable to advance diet, consider alternative means of nutrition 4. Appreciate collection of weekly wt's to monitor gains/losses Expected Outcomes/Goals: Improved nutritional status, weight maintenance ANT ILU RESIDENT Aug 16, 2024 17:49
[2024-08-17] VITALS (11 sets, daily range): BP systolic 97–141; BP diastolic 76–89; PULSE 85–98; RESP 16–20; TEMP 97.6–98.6; O2SAT 94–100
[2024-08-17 06:07] LABS: Hemoglobin 11.3 g/dL (13.5-17.5); Mean Corpuscular Hemoglobin 26.4 pg (28.0-32.0); Red Blood Cells 4.29 10^6/uL (4.5-5.90); White Blood Cell 4.9 10^3/uL (4.4-10.8)
[2024-08-17 06:10] LABS: Hematocrit 35.3 % (41.0-53.0); Mean Corpuscular Volume 82.4 fL (80.0-100.0); Platelet Count (auto) 41 10^3/uL (140-450); Red Cell Distribution Width 19.6 % (11.8-14.3)
[2024-08-17 06:23] LABS: Albumin 3.6 g/dL (3.2-4.8); Anion Gap 11 (5-15); BUN/Creatinine Ratio 20.6 (10.0-20.0); Blood Urea Nitrogen 21 mg/dL (9-23); Carbon Dioxide 23 mmol/L (20-31); Glucose 100 mg/dL (74-106); Magnesium 1.9 mg/dL (1.6-2.6); Potassium 3.8 mmol/L (3.5-5.1); Sodium 144 mmol/L (136-145)
[2024-08-17 06:31] LABS: Band Neutrophils % (manual) 0; Basophils % (manual) 0 (0.0-2.0); Blast Cells 0; Metamyelocytes % 0; Myelocytes % 0; Promyelocytes % 0; Reactive Lymphocytes 0
[2024-08-17 06:41] LABS: Alanine Aminotransferase 161 U/L (7-40); Alkaline Phosphatase 118 U/L (46-116); Aspartate Aminotransferase 44 U/L (13-40); Bilirubin, Total 2.4 mg/dL (0.2-1.0); Chloride 110 mmol/L (98-107); Total Protein 5.6 g/dL (5.7-8.2)
[2024-08-17 06:48] LABS: Eosinophils % (manual) 2 (0-7); Large Platelets FEW; Lymphocytes % (manual) 23 (10.0-50.0); Monocytes % (manual) 6 (0-12); Platelet Estimate Decrea
--- NOTE | 2024-08-17 09:05 | DVHPN2 ---
Progress Note - Dictate Date Seen: Aug 17, 2024 Medical Necessity Reason Pt with a Central, PICC or Fol: No Subjective E: no major events o/n. no complaints. alonso clear liquid diet. vital signs Vital Sign Date Time Temp Pulse Resp B/P (MAP) Pulse Ox O2 Delivery O2 Flow Rate FiO2 08/17/24 08:32 98.6 93 18 141/89 (106) 95 98.6 08/17/24 07:27 Nasal Cannula 2.0 08/17/24 07:27 28 Total Intake and Output 08/16/24 08/16/24 08/17/24 15:00 23:00 07:00 Intake Total 100 ml 290 ml 600 ml Output Total 220 ml Balance 100 ml 290 ml 380 ml medications Current Medications Medications Dose Ordered Sig/Wei Route Start Time Stop Time Status Last Admin Dose Admin Acetaminophen/ Hydrocodone Bitart 1 tab Q4HP PRN PO 08/12/24 09:15 08/17/24 04:38 1 TAB Ondansetron HCl 4 mg Q4HP PRN IV 08/12/24 09:15 08/12/24 09:52 4 MG Acetaminophen 650 mg Q6HP PRN PO 08/12/24 09:15 08/13/24 16:50 650 MG Morphine Sulfate 2 mg Q4HPRN PRN IV 08/12/24 09:15 08/12/24 22:13 2 MG Albuterol 2.5 mg Q4HPRN PRN NEB 08/12/24 10:00 Albuterol 2.5 mg Q6HR NEB 08/12/24 12:00 08/17/24 07:27 2.5 MG Ipratropium [place] 0.5 mg Q4HPRN PRN NEB 08/12/24 10:00 Ipratropium [place] 0.5 mg Q6HR NEB 08/12/24 12:00 08/17/24 07:27 0.5 MG Hydralazine HCl 10 mg Q6HP PRN IV 08/12/24 10:00 Pantoprazole Sodium 40 mg DAILY IV 08/12/24 10:00 08/16/24 08:39 40 MG Cefepime HCl 50 ml @ 12.5 mls/hr Q8HR IV 08/14/24 14:00 08/17/24 07:21 12.5 MLS/HR Metronidazole 100 ml @ 100 mls/hr Q8HR IV 08/14/24 10:00 08/17/24 06:14 100 MLS/HR objective GEN: NAD ABD: cholecystomy drain intact. laboratory and microbiology Laboratory Tests 08/17/24 04:26 Test 08/17/24 04:26 Range/Units Serum Glucose 100 74-106 mg/dL Assessment/Plan A: 1. Alcoholic cirrhosis 2. Cholecystitis 3. Left lower lobe pneumonia P: 1. s/p percutaneous cholecystostomy 2. future cholecystectomy at [facility] 3. stable from surgery POV. DC per hospitalist. Dietary Evaluation Review Comments: 1. Recommend timely diet advancement as medically able to Low Fat diet 2. Consider addition of oral nutrition supplements TID to optimize nutrition; recommend Ensure Clear (240 kcal, 8 gm pro, 0 gm fat per carton) 3. Pt not to go >7 days with inadequate nutrition; if unable to advance diet, consider alternative means of nutrition 4. Appreciate collection of weekly wt's to monitor gains/losses Expected Outcomes/Goals: Improved nutritional status, weight maintenance Plan discussed with: Patient JHONATAN MEIER MD Aug 17, 2024 09:05
[2024-08-17] MEDS: POTASSIUM EFFERVESENT TAB 25 MEQ PO ONE (09:34)
[2024-08-17] MEDS ORDERED: AUG875T PO (10:12)
--- NOTE | 2024-08-17 12:08 | DVHDSRES ---
Discharge Summary Date of Admission Resident Creating Document: ANT LIU RESIDENT Aug 12, 2024 at 09:01 Date of Discharge: Aug 17, 2024 Labs/Diagnostic Data: Laboratory Results Test 08/17/24 04:26 08/16/24 07:09 08/14/24 18:16 08/14/24 13:17 White Blood Count 4.9 10^3/uL (4.4-10.8) Red Blood Count 4.29 10^6/uL (4.5-5.90) Hemoglobin 11.3 g/dL (13.5-17.5) Hematocrit 35.3 % (41.0-53.0) Mean Corpuscular Volume 82.4 fL (80.0-100.0) Mean Corpuscular Hemoglobin 26.4 pg (28.0-32.0) Mean Corpuscular Hemoglobin Concent 32.0 g/dL (32.0-36.0) Red Cell Distribution Width 19.6 % (11.8-14.3) Platelet Count 41 10^3/uL (140-450) Mean Platelet Volume 10.4 fL (6.9-10.8) Neutrophils (%) (Auto) % (37.0-80.0) Lymphocytes (%) (Auto) % (10.0-50.0) Monocytes (%) (Auto) % (0.0-12.0) Basophils (%) (Auto) % (0.0-2.0) Neutrophils # (Auto) 10 ^3/uL (1.6-8.6) Lymphocytes # (Auto) 10 ^3/uL (0.4-5.4) Monocytes # (Auto) 10 ^3/uL (0-1.3) Differential Total Cells Counted 100.0 (100) Neutrophils % (Manual) 69 (37.0-80.0) Band Neutrophils % (Manual) 0 Lymphocytes % (Manual) 23 (10.0-50.0) Monocytes % (Manual) 6 (0-12) Eosinophils % (Manual) 2 (0-7) Basophils % (Manual) 0 (0.0-2.0) Metamyelocytes % (manual) 0 Myelocytes % (Manual) 0 Promyelocytes % (Manual) 0 Blast Cells % (Manual) 0 Reactive Lymphocytes 0 Platelet Estimate Decrea Large Platelets Few Sodium Level 144 mmol/L (136-145) Potassium Level 3.8 mmol/L (3.5-5.1) Chloride Level 110 mmol/L (98-107) Carbon Dioxide Level 23 mmol/L (20-31) Anion Gap 11 (5-15) Blood Urea Nitrogen 21 mg/dL (9-23) Creatinine 1.02 mg/dL (0.700-1.30) Glomerular Filtration Rate Calc 90 mL/min (>90) BUN/Creatinine Ratio 20.6 (10.0-20.0) Serum Glucose 100 mg/dL (74-106) Calcium Level 9.0 mg/dL (8.7-10.4) Magnesium Level 1.9 mg/dL (1.6-2.6) Total Bilirubin 2.4 mg/dL (0.2-1.0) Aspartate Amino Transferase (AST) 44 U/L (13-40) Alanine Aminotransferase (ALT) 161 U/L (7-40) Alkaline Phosphatase 118 U/L (46-116) Total Protein 5.6 g/dL (5.7-8.2) Albumin 3.6 g/dL (3.2-4.8) Eosinophils (%) (Auto) 0.0 % (0.0-7.0) Eosinophils # (Auto) 0 10 ^3/uL (0-0.8) Basophils # (Auto) 0 10 ^3/uL (0-0.2) Nucleated Red Blood Cells 0.3 % Iron Level 25 ug/dL (65-175) Total Iron Binding Capacity 322 ug/dL (250-425) Percent Iron Saturation 7.8 % (20-55) Lactic Acid Level 1.6 mmol/L (0.4-2.0) Test 08/14/24 13:13 08/14/24 05:16 08/13/24 09:30 08/13/24 08:44 Karen-Vanegas Virus Capsid Ag IgG Ab 44.9 U/mL (0.0-17.9) Reticulocyte Count (auto) 2.81 % (0.5-1.5) Prothrombin Time 13.4 sec (9.3-11.8) Prothrombin Time INR 1.30 (0.9-1.15) Activated Partial Thromboplast Time 26.8 SEC (24.5-34.5) Hepatitis B Surface Antigen Negative (Negative) Hepatitis B Surface Antibody Negative (Negative) Hepatitis C Antibody Negative (Negative) HIV (1&2) Antibody Negative (Negative) Vitamin B12 Level 1156 pg/mL (211-911) Vitamin D 25-Hydroxy 34.4 ng/mL (30.0-100) Folic Acid 13.38 ng/mL (>5.38) POC Glucose 127 mg/dl (70-106) Test 08/13/24 08:06 08/12/24 10:02 08/12/24 04:38 08/12/24 03:45 Influenza Type A Antigen Negative (Negative) Influenza Type B Antigen Negative (Negative) SARS-CoV-2 Antigen (Rapid) Negative (NEGATIVE) Triglycerides Level 117 mg/dL (< 150) Cholesterol Level 159 mg/dL (< 200) LDL Cholesterol 70 mg/dL (< 100) HDL Cholesterol 70 mg/dL (40-59) Thyroid Stimulating Hormone (TSH) 2.13 uIU/mL (0.55-4.78) Urine Color Dark-red (Yellow) Urine Clarity Turbid (Clear) Urine pH 6.0 (5.0-9.0) Urine Specific [place] 1.046 (1.001-1.035) Urine Protein 2+ (Negative) Urine Ketones Negative (Negative) Urine Blood 2+ /uL (Negative) Urine Nitrite Negative (Negative) Urine Bilirubin Negative (Negative) Urine Urobilinogen Normal mg/dL (Negative) Urine Leukocyte Esterase Negative /uL (Negative) Urine RBC 43 /hpf (0 - 3) Urine Microscopic WBC 6 /HPF (0-3) Urine Squamous Epithelial Cells Few /hpf (<5) Urine Bacteria None seen /hpf (None Seen) Urine Hyaline Casts Few /lpf (0 - 2) Urine Mucus Few (None Seen) Urine Glucose Normal mg/dL (Normal) Hemoglobin A1c 4.8 % A1C (<5.7) Lipase 72 U/L (12-53) Other Laboratory Tests 08/17/24 04:26 Brief Hx & Hospital Course: 48-year-old male patient with PMHx alcoholic cirrhosis 4 years, hypertension, peptic ulcer disease, asthma, obesity presented to the ED with a chief complaint of right upper quadrant pain for the past week. Associated factors include jaundice, dark urine, nausea and vomiting. Patient denies fever/chills/chest pain/shortness of breaths. On arrival patient was tachycardic, tachypneic, requiring oxygen supplementation with 4 L. white cell count was elevated at 13 which increased to 15, normocytic anemia, lactic acidosis, and LFTs showing cholestasis pattern. CT abdomen showed cirrhotic liver morphology. Associated splenomegaly and lobe volume ascites. Cholelithiasis with gallbladder hydrops and possible gallbladder wall thickening which may indicate acute cholecystitis. Consequently HIDA scan completed which showed nonvisualized gallbladder consistent with acute cholecystitis. Without evidence of biliary dilation or obstruction. Surgeon was consulted, recommended higher level of care and percutaneous cholecystectomy tube placement which was completed 08/13. Per HLOC, patient does not need acute cholecystectomy Social history: Lives with , quit drinking 4 years back, denies smoking or drug use. Patient was admitted in this facility in 2019 with COVID-19 pneumonia and sepsis. 08/14 - Patient seen and examined at the bedside. Second unit of platelet apheresis unit ordered. 08/15-patient seen and examined at bedside. Platelets downtrending even after 2 units of platelet transfusion. Cholecystectomy tube placement postponed given the thrombocytopenia. Another 2 units of platelets diaphoresis ordered. Heme oncology consulted. 08/16 patient seen and examined at bedside. No acute distress, LFT downtrending. Alk-phos stable. Underwent cholecystectomy tube placement by IR. During the hospitalization, CT abdomen completed showed shrunken nodular liver consistent with advanced hepatic cirrhosis. Associated splenomegaly and low volume abdominopelvic ascites. Cholelithiasis with gallbladder hydrops and possible gallbladder wall thickening which may indicate acute cholecystitis. HIDA scan showed nonvisualized gallbladder, consistent with acute cholecystitis. Without evidence of biliary dilation or obstructive. Patient was diagnosed with sepsis secondary to acute cholecystitis and was started on IV saline, IV metronidazole, IV Zosyn which was switched to IV cefepime. Received Protonix. Surgeon was consulted for cholecystectomy, surgeon recommended cholecystectomy tube placement given the advanced cirrhosis. Patient developed anemia, hemoglobin dropped from 14 to 9, IR consulted for embolization via femoral access was completed 08/13, no embolization was performed given unable to opacify the cystic artery after originally limits of the injection rate of the catheters. Patient was scheduled for cholecystectomy tube placement which got delayed given the thrombocytopenia, youth development specialist was consulted, patient received 4 platelet apheresis units within 2 days, per youth development specialist Dr. Toro, thrombocytopenia likely due to advanced cirrhosis. Steroids were discontinued. Patient underwent cholecystectomy tube placement 08/16. US/fluoro-guided percutaneous 8.5 Yemeni cholecystostomy tube placement. Contrast is seen extraocular visiting from the gallbladder concerning for gallbladder perforation. Tube will remain in place for at least 6-8 weeks before removal.If cholecystectomy is not planned, please have patient follow-up with IR at discharge to schedule cholangiogram in 6-8 weeks. If cystic duct patency and tract maturation is established, we will consider clamp trial prior to removal of the tube in 1-2 weeks. COVID/HIV/hepatitis panel unremarkable. Following the procedure, patient was started on clear liquid diet which was advanced to full liquid diet. 08/17-patient was clinically/hemodynamically stable in the sole of tolerating full liquid diet, therefore is being discharged home with the recommendation to follow up with level of care and surgeon as outpatient for cholecystectomy within 7 days. Follow up with loaf counter as outpatient and primary care physician. Discharged on amoxicillin 875 mg twice daily for the next 7 days and advised to continue full liquid diet for the next 2 weeks. Discharge diagnosis Sepsis secondary to acute cholecystitis status post cholecystectomy tube placement 08/16 Cholestatic liver disease Rule out choledocholithiasis Lactic acidosis-resolved Alcoholic liver cirrhosis Chronic alcohol dependence Severe anemia, likely due to iron-deficiency Severe thrombocytopenia, likely secondary to advanced cirrhosis MYLES, likely vasomotor Hematuria Consults/Reason for consult Surgeon consulted for cholecystitis IR consulted for cholecystectomy tube Operations or Procedures ORDERING PHYSICIAN: JAMA CARR MD PROCEDURE(s): PERCH - PERCUTANEOUS CHOLANGIO REASON: CHOLECYSTOMY TUBE PLACEMENT ORDER NUMBER(s): [id number], ACCESSION NUMBER(s): [id number] XY PERCUTANEOUS CHOLANGIO, HISTORY: CHOLECYSTOMY TUBE PLACEMENT PROCEDURE: Informed consent was obtained. The patient was placed in supine position, and initial limited ultrasound evaluation of the RUQ abdomen was obtained. The skin overlying the gallbladder was prepped with chlorhexidine which was allowed to dry and draped in the usual sterile fashion. Time out was performed. IV sedation and 1% lidocaine local anesthetic were administered. Using US needle biopsy guide, a 21 g Accu Stick needle was advanced into the gallbladder via a intercostal , trans-peritoneal approach. Following aspiration of bile, a small amount of contrast was injected to delineate the viscous. The needle was then exchanged over mandrill wire to a non-vascular access set, through which a 035 guidewire was advanced into the gallbladder. Following serial dilation, an 8.5 Yemeni multipurpose pigtail catheter was placed within the gallbladder. Approximately 3 cc of fluid was withdrawn and sent to the laboratory for analysis. The drain was secured in place and attached to gravity drainage. A sterile dressing was applied. No immediate complication was identified. DAP FLUOROSCOPY TIME: 1.5 minutes. CONTRAST USED: 15 mL . SEDATION: Dr. Zeina Carr was personally responsible for the administration of moderate sedation during the procedure performed, including the use of an independent trained observer who had no other duties during the procedure. The drugs utilized were IV fentanyl and versed (see nursing log for details). The total time of supervision by the attending physician was [id number] minutes. FINDINGS: Limited US scan of the right upper abdomen demonstrates a mildly distended gallbladder. Aspirated bile is bloody and thick. Contrast is seen extravasating from the gallbladder. Completion image demonstrates good positioning of the drainage catheter. The cystic duct is not seen. IMPRESSION: US/fluoro-guided percutaneous 8.5 Yemeni cholecystostomy tube placement. Contrast is seen extravasating from the gallbladder concerning for a gallbladder perforation. PLAN: This tube will need to remain in place for at least 6-8 weeks before removal, so as to prevent bile leakage. If cholecystectomy is not planned, please have patient follow-up with IR at discharge to schedule cholangiogram in 6-8 weeks. If cystic duct patency and tract maturation is established, we will consider clamp trial prior to removal of the tube in 1-2 weeks. ATED BY: JAMA CARR MD DICTATED DATE/TIME: 08/16/24 1206 SIGNED BY: JAMA CARR MD SIGNED DATE/TIME: 08/16/24 1206 CC: ORDERING PHYSICIAN: JAMA CARR MD PROCEDURE(s): THOUS - US GUIDANCE FOR NEEDLE PLACEME REASON: BEAR TUBE PLACEMENT ORDER NUMBER(s): [id number], ACCESSION NUMBER(s): [id number] XY PERCUTANEOUS CHOLANGIO, HISTORY: CHOLECYSTOMY TUBE PLACEMENT PROCEDURE: Informed consent was obtained. The patient was placed in supine position, and initial limited ultrasound evaluation of the RUQ abdomen was obtained. The skin overlying the gallbladder was prepped with chlorhexidine which was allowed to dry and draped in the usual sterile fashion. Time out was performed. IV sedation and 1% lidocaine local anesthetic were administered. Using US needle biopsy guide, a 21 g Accu Stick needle was advanced into the gallbladder via a intercostal , trans-peritoneal approach. Following aspiration of bile, a small amount of contrast was injected to delineate the viscous. The needle was then exchanged over mandrill wire to a non-vascular access set, through which a 035 guidewire was advanced into the gallbladder. Following serial dilation, an 8.5 Yemeni multipurpose pigtail catheter was placed within the gallbladder. Approximately 3 cc of fluid was withdrawn and sent to the laboratory for analysis. The drain was secured in place and attached to gravity drainage. A sterile dressing was applied. No immediate complication was identified. DAP FLUOROSCOPY TIME: 1.5 minutes. CONTRAST USED: 15 mL . SEDATION: Dr. Zeina Carr was personally responsible for the administration of moderate sedation during the procedure performed, including the use of an independent trained observer who had no other duties during the procedure. The drugs utilized were IV fentanyl and versed (see nursing log for details). The total time of supervision by the attending physician was [id number] minutes. FINDINGS: Limited US scan of the right upper abdomen demonstrates a mildly distended gallbladder. Aspirated bile is bloody and thick. Contrast is seen extravasating from the gallbladder. Completion image demonstrates good positioning of the drainage catheter. The cystic duct is not seen. IMPRESSION: US/fluoro-guided percutaneous 8.5 Yemeni cholecystostomy tube placement. Contrast is seen extravasating from the gallbladder concerning for a gallbladder perforation. PLAN: This tube will need to remain in place for at least 6-8 weeks before removal, so as to prevent bile leakage. If cholecystectomy is not planned, please have patient follow-up with IR at discharge to schedule cholangiogram in 6-8 weeks. If cystic duct patency and tract maturation is established, we will consider clamp trial prior to removal of the tube in 1-2 weeks. ATED BY: JAMA CARR MD DICTATED DATE/TIME: 08/16/24 120 SIGNED BY: JAMA CARR MD SIGNED DATE/TIME: 08/16/24 1206 CC: ORDERING PHYSICIAN: ANT LIU RESIDENT PROCEDURE(s): SPLUS - SPLEEN REASON: r/o splenic sequestration given thrombocytopenia ORDER NUMBER(s): [id number], ACCESSION NUMBER(s): [id number] EXAM: US SPLEEN CLINICAL HISTORY: r/o splenic sequestration given thrombocytopenia TECHNIQUE: Grayscale and limited color flow doppler ultrasound of the spleen is performed. COMPARISON: US GALLBLADDER on DOS: 08/12/24, LIVER on DOS: 11/09/19 Findings/Impression: Spleen is enlarged and measures 15.9 x 12.6 x 11.3 cm. Homogeneous echotexture. No evidence of hypoechoic regions within the spleen. Cannot exclude splenic sequestration. Correlate with hemoglobin. ATED BY: ELMA HATCH DO DICTATED DATE/TIME: 08/15/241733 SIGNED BY: ELMA HATCH DO SIGNED DATE/TIME: 08/15/241733 CC: ORDERING PHYSICIAN: FAVIO CLAY MD PROCEDURE(s): ABPLIV - CT AB PEL WITH IV CON ONLY REASON: upper abd pain ORDER NUMBER(s): [id number], ACCESSION NUMBER(s): [id number] EXAM: CT CT AB PEL WITH IV CON ONLY HISTORY: upper abd pain COMPARISON: None TECHNIQUE: Helical CT images of the abdomen and pelvis were performed with 100 mL Omnipaque 300 IV contrast. Sagittal and coronal reformatted images were obtained. This CT exam was performed using 1 or more of the following dose reduction techniques: Automated exposure control, adjustment of the mA and/or kv according to patient size, or the use of iterative reconstruction techniques. Radiation Dose Information: CT Dose: CTDI volume is 25.54 mGy. Dose-length product is 1716.41 mGy*cm FINDINGS: CT abdomen: There are patchy nodular infiltrates in the left lower lobe. There is mild scarring or atelectasis in the lingula. The heart is not enlarged. The liver is shrunken, with irregular nodular margins. Gallbladder is distended up to 6.6 cm width x 11.7 cm length, with gallstones present and possible wall thickening. There is low volume free fluid in the right upper quadrant. The spleen measures 14 cm longitudinal. The pancreas, kidneys, and adrenal glands are unremarkable. No abdominal aortic aneurysm or dissection. CT pelvis: No abnormal bowel dilatation. There is low volume free fluid in the pelvis. The appendix is not visualized. There is a small fatty left inguinal indirect hernia. The prostate is upper limits of normal in size. The urinary bladder is decompressed. There is ugme-ws-[id number] lumbar degenerative disc disease. IMPRESSION: 1. Mild left lower lobe pneumonia. 2. Shrunken nodular liver consistent with advanced hepatic cirrhosis. There is associated splenomegaly and low volume abdominopelvic ascites. 3. Cholelithiasis with gallbladder hydrops and possible gallbladder wall thickening which may indicate acute cholecystitis. 4. No evidence of bowel obstruction or other acute process in the abdomen or pelvis. ATED BY: CHELE GERARDO MD DICTATED DATE/TIME: 08/12/24 0454 SIGNED BY: CHELE GERARDO MD SIGNED DATE/TIME: 08/12/24453 CC: Condition at Discharge: Stable Final Diagnosis/Problems List Sepsis secondary to acute cholecystitis status post cholecystectomy tube placement 08/16 Cholestatic liver disease Rule out choledocholithiasis Lactic acidosis-resolved Alcoholic liver cirrhosis Chronic alcohol dependence Severe anemia, likely due to iron-deficiency Severe thrombocytopenia, likely secondary to advanced cirrhosis MYLES, likely vasomotor Hematuria Discharge Disposition: Home Discharge Instruct/Medications Diet: See Comment Diet comment: Continue full liquid diet for the next 2 weeks along with low sodium diet Activity: Light activity Follow Up/Referral: Follow up with surgeon as outpatient within 7 days for cholecystectomy Follow up with the higher level of care was outpatient for cholecystectomy Follow up with loaf counter within 7 days Follow up with primary care physician within 7 days Follow up with discharge clinic appointment within 7 days Medications: Per EMR Discharge Statement: "Patient was advised to return to the ER or call 911 if any headaches, dizziness, shortness of breath, chest pain, abdominal pain, bleeding, fevers, or worsening of medical condition. Patient was counseled about treatment plan, medications, possible side effects, patientverbalized understanding. All questions were answered to the best of my ability. This discharge took greater then 30 minutes in planning, reviewing documentation, counseling the patient, and discussing with other team members." ASSESSMENT ASSESSMENT Assessment Sepsis secondary to acute cholecystitis status post cholecystectomy tube placement 08/16 Cholestatic liver disease Rule out choledocholithiasis Lactic acidosis-resolved Alcoholic liver cirrhosis Chronic alcohol dependence Severe anemia, likely due to iron-deficiency Severe thrombocytopenia, likely secondary to cirrhosis ANT LIU RESIDENT Aug 17, 2024 12:08
== END 2024-08-17 13:06 | disposition home or self-care (01) | DRG 720 ==
LOC: ER 03:12 → EDBD 03:12 → OVERFLOW 09:01 → WEST WING 08-13 17:51 → TELE-WESTW 08-14 01:59 → WEST WING 08-15 14:20
PROVIDERS: ADMIT Student in an Organized Health Care Education/Training Program; ATTEND Emergency Medicine
PROC: BF151ZZ Fluoroscopy of Liver using Low Osmolar Contrast (ICD-10-PCS; 2024-08-13)
PROC: BF121ZZ Fluoroscopy of Gallbladder using Low Osmolar Contrast (ICD-10-PCS; 2024-08-13)
PROC: 30233R1 Transfusion of Nonautologous Platelets into Peripheral Vein, Percutaneous Approach (ICD-10-PCS; principal; 2024-08-15)
PROC: 0F9430Z Drainage of Gallbladder with Drainage Device, Percutaneous Approach (ICD-10-PCS; 2024-08-16)
PROC: BF131ZZ Fluoroscopy of Gallbladder and Bile Ducts using Low Osmolar Contrast (ICD-10-PCS; 2024-08-16)
DX: A41.9 Sepsis, unspecified organism (principal); J96.01 Acute respiratory failure with hypoxia; D69.6 Thrombocytopenia, unspecified; K80.62 Calculus of gallbladder and bile duct with acute cholecystitis without obstruction; I10 Essential (primary) hypertension; K70.31 Alcoholic cirrhosis of liver with ascites; N17.9 Acute kidney failure, unspecified; Z20.822 Contact with and (suspected) exposure to COVID-19; D64.9 Anemia, unspecified; Y90.9 Presence of alcohol in blood, level not specified; E87.6 Hypokalemia; F10.20 Alcohol dependence, uncomplicated; E66.01 Morbid (severe) obesity due to excess calories; J45.909 Unspecified asthma, uncomplicated; Z87.11 Personal history of peptic ulcer disease; Z79.899 Other long term (current) drug therapy; Z79.2 Long term (current) use of antibiotics; Z79.1 Long term (current) use of non-steroidal anti-inflammatories (NSAID); Z79.891 Long term (current) use of opiate analgesic; Z68.34 Body mass index [BMI] 34.0-34.9, adult
CPT/HCPCS: 36415; 47532; 71045; 74177; 76705; 76942; 78226; 80053; 80061; 81001; 82306; 82607; 82746; 82962; 83036; 83540; 83550; 83605; 83690; 83735; 84443; 85007; 85025; 85027; 85045; 85610; 85730; 86664; 86703; 86706; 86803; 86850; 86900; 86901; 87040; 87081; 87205; 87340; 87426; 87804; 93005; 94640; 99152; 99291; C1894; G0378; J0692; J2250; J2405; J2470; J2543; J3490; Q9967

== ENCOUNTER 2025-03-07 10:45 | Day surgery (SDC) | payer OTHER ==
[~2025-03-07] VITALS: Ht 177.8 cm; Wt 104.3 kg
[~2025-03-07 10:45] MED LIST changes: +AUG875T PO; -DOX100T PO; +METO-289 PO
[2025-03-07] MEDS ORDERED: LIDOCAINE 1% HCL (LOCAL ANESTH.) INJ 20ML MDV IV ONE (10:46)
[2025-03-07] MEDS ORDERED: ONDANSETRON HCL 4 MG/2 ML VIAL ONE (13:27)
[2025-03-07] MEDS ORDERED: METOCLOPRAMIDE HCL 5MG/ml INJ 2ml VIAL ONE (13:27)
[2025-03-07] MEDS ORDERED: PROPOFOL 10 MG/ML 20 ML IV ONE (13:27)
[2025-03-07 13:31] VITALS: PULSE 93; RESP 14; TEMP 98.3; O2SAT 92
--- NOTE | 2025-03-07 13:33 | DVHHP2 ---
GI H&P Pre-Op Assessment Date: 03/07/25 Chief complaint: Cirrhosis, esophageal variceal screening HPI: per clinic note Past medical history: per clinic note Past surgical history: per clinic note Family history: per clinic note Physical exam: General: NAD, AAOX3 HEENT: PERRL, no scleral icterus, normal hearing, gums without lesions or bleeding, oropharynx clear without erythema or exudate. Neck: Supple without enlargement of the thyroid, or lymphadenopathy. Chest: Normal size and shape, no tenderness, lung garcia clear to auscultation and percussion, nonlabored breathing. Heart: RRR, no murmur Abdomen: non-distended, no tenderness to palpation, +BS, no hepatosplenomegaly Extremities: no edema Neurological: CN II-XII intact, sensation intact in all extremities, 5+ strength in all extremities Skin: No rashes, No jaundice Assessment: - Cirrhosis, esophageal variceal screening Plan: - EGD - Risks (bleeding, infection, perforation, reaction to sedation medications and cardiopulmonary arrest) and benefit of the procedure were explained to patient. Patient agrees to undergo the procedure. JASEN DE LEON MD Mar 07, 2025 13:33
--- NOTE | 2025-03-07 13:34 | DVHOP2 ---
Operative Report DATE OF OPERATION: 03/07/25 PROCEDURE: Upper Endoscopy. PREOPERATIVE INDICATION: The patient is a 49 -year-old male cirrhosis undergoing endoscopy for esophageal variceal screening. POSTOPERATIVE DIAGNOSES: 1. No esophageal varices. 2. Normal EGD PROCEDURE PERFORMED BY: Angel Abad SCOPE: Olympus videoendoscope. ASA CLASS: 3 PREOPERATIVE MEDICATIONS: MAC with Mota ESCROW OFFICER PROCEDURE IN DETAIL: After obtaining an informed consent, the patient was placed on left lateral decubitus position. The patient was then sedated with the above medications. A bite block was placed between his teeth. The endoscope was then passed through the oropharynx, into the esophagus, and through the stomach and pylorus up to the second and third part of the duodenum. The duodenum was normal in appearance. The stomach was normal in appearance. The GE junction was normal in appearance at 35 cm. The esophagus was normal in appearance without any esophageal varices. The endoscope was then withdrawn. The patient tolerated the procedure well without difficulty. COMPLICATIONS : None SPECIMENS: None DISPOSITION: D/C to home PLAN: 1. Patient can get a repeat EGD in three years for esophageal variceal screening. ANGEL ABAD MD Mar 07, 2025 13:34
--- NOTE | 2025-03-07 13:35 | DVHDS2 ---
Physician Discharge Progress N Final Diagnosis: Normal EGD Operations or Procedures: Operations or Procedures EGD Condition on Discharge: Good Disposition: Home Discharge Instructions: Diet: Regular Activity: No Restrictions, As Tolerated Medications: Resume previous home medications Follow Up Care: Discharge Statement: "Patient was advised to return to the ER or call 911 if any headaches, dizz iness, shortness of breath, chest pain, abdominal pain, bleeding, fevers, or worsening of medical condition. Patient was counseled about treatment plan, medications, possible side effects, patientverbalized understanding. All questions were answered to the best of my ability. This discharge took greater then 30 minutes in planning, reviewing documentation, counseling the patient, and discussing with other team members." JASEN DE LEON MD Mar 07, 2025 13:34
[2025-03-07 13:55] VITALS: BP 109/70; PULSE 64; RESP 20; O2SAT 98
== END 2025-03-07 14:10 | disposition home or self-care (01) ==
LOC: GI 10:45
PROVIDERS: ATTEND Internal Medicine Gastroenterology
DX: K74.60 Unspecified cirrhosis of liver (principal); I10 Essential (primary) hypertension; Z79.899 Other long term (current) drug therapy; Z90.49 Acquired absence of other specified parts of digestive tract
CPT/HCPCS: 43235; J2003; J2405; J2704; J2765; J7030